=== PATIENT | male | born 1945 | race American Indian/Alaskan Native ===

== ENCOUNTER 2017-03-31 08:38 | Day surgery (SDC) | payer MEDICARE ==
[2017-03-31] MEDS ORDERED: Iohexol 240 (50 ml) ONE (10:25)
[2017-03-31] MEDS ORDERED: Midazolam 2 MG/2 ML VIAL ONE (10:45)
[2017-03-31] MEDS ORDERED: Propofol 10 mg/ml Inj (20 ML) ONE (10:45)
[2017-03-31] MEDS ORDERED: cefTRIAXone (Rocephin) 1 gm Inj ONE (10:52)
[2017-03-31] MEDS ORDERED: Sodium Chloride 0.9% 1,000 ML IV SCH (11:15)
[2017-03-31 12:19] VITALS: TEMP 97.6
[2017-03-31 12:32] VITALS: BMI 36.9
[2017-03-31 13:18] VITALS: BP 123/81; PULSE 76; RESP 20; O2SAT 96
--- NOTE | 2017-04-01 16:00 | RAD ---
PROCEDURE: Retrograde pyelogram HISTORY: CYSTOSCOPY COMPARISON: TECHNIQUE: Fluoroscopy was provided in the operating room. 58 seconds of fluoroscopy time were utilized. Six images were submitted FINDINGS: The study was performed by Dr. Arevalo. The renal collecting systems and both ureters are unremarkable. IMPRESSION: As above
== END 2017-03-31 13:45 | disposition home or self-care (01) ==
LOC: SDS 08:38
PROVIDERS: ATTEND Urology
DX: R31.9 Hematuria, unspecified (principal); I10 Essential (primary) hypertension
CPT/HCPCS: 52005; 74420; C1758; J0696; J1885 ×2; J2250; J2704; J3010; J7040; J7120; Q9966

== ENCOUNTER 2017-11-12 06:51 | Observation (INO) | payer MEDICARE, OTHER ==
[2017-11-12 06:56] VITALS: BMI 32.1
--- NOTE | 2017-11-12 07:27 | ED PDOC ---
Arrival/HPI - General Chief Complaint: Shortness Of Breath Time Seen by Provider: 11/12/17 07:15 Historian: Patient - History of Present Illness Narrative History of Present Illness (Text): 11/12/17 07:15 Oscar Mathew is a72 year old male, who presents to the emergency department complaining of shortness of breath since early this morning. Patient reports coughing and the symptoms began when he woke up. Patient denies chest pain, headache, fever, chills, back pain, nausea, vomiting, diarrhea, abdominal pain, lower extremity pain/swelling, recent travel, or other complaints. PMD: Dr. Duarte Time/Duration: Prior to Arrival Symptom Onset: Sudden Symptom Course: Unchanged Activities at Onset: Rest Context: Home Past Medical History - Provider Review Nursing Documentation Reviewed: Yes - Cardiac Hx Hypertension: Yes Hx Pacemaker: No - Pulmonary Hx Respiratory Disorders: No - Neurological Hx Paralysis: No - HEENT Hx HEENT Disorder: No - Renal Hx Renal Disorder: No - Endocrine/Metabolic Hx Endocrine Disorders: No - Hematological/Oncological Hx Blood Transfusions: No - Integumentary Hx Dermatological Disorder: No - Musculoskeletal/Rheumatological Hx Musculoskeletal Disorders: Yes - Gastrointestinal Hx Gastrointestinal Disorders: No - Genitourinary/Gynecological Hx Genitourinary Disorders: Yes (overactive bladder) - Psychiatric Hx Emotional Abuse: No Hx Physical Abuse: No Hx Substance Use: No - Surgical History Hx Orthopedic Surgery: Yes (left wrist sx 16 yrs old) - Anesthesia Hx Anesthesia Reactions: No Hx Malignant Hyperthermia: No - Suicidal Assessment Feels Threatened In Home Enviroment: No Family/Social History - Physician Review Nursing Documentation Reviewed: Yes Family/Social History: Unknown Family HX Smoking Status: Former Smoker Hx Alcohol Use: Yes (socially) Hx Substance Use: No Allergies/Home Meds Allergies/Adverse Reactions: Allergies No Known Allergies Allergy (Verified 11/12/17 06:56) Home Medications: Home Meds Medication Instructions Recorded Confirmed Atorvastatin [Lipitor] 80 mg PO DAILY 11/15/16 11/12/17 Benazepril HCl [Benazepril HCl] 40 mg PO DAILY 11/15/16 11/12/17 Mirabegron [Myrbetriq] 50 mg PO DAILY 11/15/16 11/12/17 amLODIPine [Norvasc] 10 mg PO DAILY 03/20/17 11/12/17 Pravastatin Sodium [Pravachol] 40 mg PO DAILY 11/12/17 11/12/17 Review of Systems - Physician Review All systems were reviewed & negative as marked: Yes - Review of Systems Constitutional: absent: Fevers Respiratory: SOB, Cough Cardiovascular: absent: Chest Pain Gastrointestinal: absent: Abdominal Pain Physical Exam Vital Signs Reviewed: Yes Vital Signs Temp Pulse Resp BP Pulse Ox 11/12/17 12:39 146/77 11/12/17 11:53 97.8 F 96 H 18 148/79 97 11/12/17 07:10 23 97 11/12/17 06:57 97.0 F L 108 H 22 154/83 H 97 Temperature: Hypothermic Blood Pressure: Hypertensive Pulse: Tachycardic Respiratory Rate: Normal Appearance: Positive for: Well-Appearing, Non-Toxic, Comfortable Pain Distress: None Mental Status: Positive for: Alert and Oriented X 3 - Systems Exam Head: Present: Atraumatic, Normocephalic Pupils: Present: PERRL Extroacular Muscles: Present: EOMI Conjunctiva: Present: Normal Mouth: Present: Moist Mucous Membranes Neck: Present: Normal Range of Motion Respiratory/Chest: Present: Decreased Breath Sounds (diminished sound at bases) . No: Clear to Auscultation, Good Air Exchange, Respiratory Distress, Accessory Muscle Use Cardiovascular: Present: Normal S1, S2, Tachycardic. No: Murmurs Abdomen: Present: Normal Bowel Sounds. No: Tenderness, Distention, Peritoneal Signs, Rebound, Guarding Lower Extremity: Present: Normal Inspection, NORMAL PULSES, Normal ROM, Neurovascularly Intact, Capillary Refill < 2 s. No: Edema, Cyanosis, Tenderness , Swelling, Erythema, Deformity Neurological: Present: GCS=15, CN II-XII Intact, Speech Normal Skin: Present: Warm, Dry, Normal Color. No: Rashes Psychiatric: Present: Alert, Oriented x 3, Normal Insight, Normal Concentration Medical Decision Making ED Course and Treatment: 11/12/17 Impression: 72 year old male with diminished sound at bases complaining of shortness of breath and cough since this morning. Plan: -- EKG -- Chest X-ray -- Labs -- Urinalysis -- Reassess and disposition Progress Notes: EKG: Ordered, reviewed, and independently interpreted the EKG. Rate : 107 BPM Rhythm : sinus tachycardia Interpretation : Non-specific ST-segment elevations or depressions, no T-wave inversions, normal intervals. 11/12/17 09:00 Chest X-ray: Creator : Jhonatan Rubio MD COMPARISON: 03/20/2027 FINDINGS: LUNGS: No active pulmonary disease. PLEURA: No significant pleural effusion identified, no pneumothorax apparent. CARDIOVASCULAR: Normal heart size. Congestive change. OSSEOUS STRUCTURES: No significant abnormalities. VISUALIZED UPPER ABDOMEN: Normal. OTHER FINDINGS: None. IMPRESSION: Congestive change. Possible congestive heart failure. No evidence of pulmonary edema. No additional abnormality. 11/12/17 13:43 dr cisneros requests hospitalist admission. accepted by dr bazan - Lab Interpretations Lab Results: 11/12/17 07:13 11/12/17 09:10 Lab Results 11/12/17 09:39: Urine Color Yellow, Urine Appearance Sl cloudy, Urine pH 6.0, Ur Specific [place] >= 1.030, Urine Protein >=300 H, Urine Glucose (UA) Negative , Urine Ketones Negative, Urine Blood Moderate H, Urine Nitrate Negative, Urine Bilirubin Negative, Urine Urobilinogen 0.2, Ur Leukocyte Esterase Negative, Urine RBC 10 - 15, Urine WBC 5 - 10, Ur Epithelial Cells 4 - 5, Urine Bacteria Mod 11/12/17 09:10: Sodium 142, Potassium 4.1, Chloride 107, Carbon Dioxide 24, Anion Gap 16, BUN 16, Creatinine 0.9, Est GFR ( Amer) > 60, Est GFR (Non- Af Amer) > 60, Random Glucose 163 H, Calcium 9.7, Magnesium 1.9, Total Bilirubin 0.6, AST 43, ALT 40, Alkaline Phosphatase 47, Lactate Dehydrogenase 656, Total Creatine Kinase 212, Troponin I 0.10 D, NT-Pro-B Natriuret Pep 472 H , Total Protein 7.6, Albumin 3.9, Globulin 3.7, Albumin/Globulin Ratio 1.1 11/12/17 07:13: Influenza Typ A,B (EIA) Negative for flu a/b 11/12/17 07:13: PT 12.6 H, INR 1.09 H, APTT 29.0, D-Dimer, Quantitative 290 H 11/12/17 07:13: WBC 10.3, RBC 4.65, Hgb 14.5, Hct 44.5, MCV 95.7, MCH 31.2, MCHC 32.6, RDW 13.5, Plt Count 238, MPV 11.8 H, Gran % 49.5 L, Lymph % (Auto) 39.5 H, [place] % (Auto) 4.7, Eos % (Auto) 5.7 H, Baso % (Auto) 0.6, Gran # 5.10, Lymph # (Auto) 4.1 H, [place] # (Auto) 0.5, Eos # (Auto) 0.6, Baso # (Auto) 0.06 I have reviewed the lab results: Yes - RAD Interpretation Radiology Orders: 11/12/17 07:19 CHEST PORTABLE [RAD] Stat 11/12/17 09:44 ANGIO CHEST PE PROTOCOL [CT] Stat Marketing Assistant: Radiologist - EKG Interpretation Interpreted by ED Physician: Yes Type: 12 lead EKG - Medication Orders Current Medication Orders: Amlodipine Besylate (Norvasc) 10 mg PO DAILY KYLE Atorvastatin Calcium (Lipitor) 80 mg PO DIN KYLE Atorvastatin Calcium (Lipitor) 10 mg PO DAILY KYLE Furosemide (Lasix) 40 mg IVP Q12 KYLE Heparin Sodium (Porcine) (Heparin) 5,000 units SC Q12 KYLE PRN Reason: Protocol Non-Formulary Medication (Benazepril Hcl [Benazepril Hcl]) 40 mg PO DAILY KYLE Non-Formulary Medication (Mirabegron [Myrbetriq]) 50 mg PO DAILY KYLE Pantoprazole Sodium (Protonix Inj) 40 mg IVP DAILY KYLE Discontinued Medications Furosemide (Lasix) 40 mg IVP STAT STA Stop: 11/12/17 12:14 Last Admin: 11/12/17 12:39 Dose: 40 mg MAR Blood Pressure Document 11/12/17 12:39 EQ (Rec: 11/12/17 12:39 EQ [id number]) Blood Pressure Blood Pressure (100/60-150/90) 146/77 IVP Administration Document 11/12/17 12:39 EQ (Rec: 11/12/17 12:39 EQ [id number]) Charges for Administration # of IVP Administrations 1 - Scribe Statement The provider has reviewed the documentation as recorded by the Sofy Li Provider Scribe Attestation: All medical record entries made by the Scribe were at my direction and personally dictated by me. I have reviewed the chart and agree that the record accurately reflects my personal performance of the history, physical exam, medical decision making, and the department course for this patient. I have also personally directed, reviewed, and agree with the discharge instructions and disposition. Disposition/Present on Arrival - Present on Arrival Any Indicators Present on Arrival: No History of DVT/PE: No History of Uncontrolled Diabetes: No Urinary Catheter: No History of Decub. Ulcer: No History Surgical Site Infection Following: None - Disposition Have Diagnosis and Disposition been Completed?: Yes Diagnosis: CHF (congestive heart failure) Disposition: HOSPITALIZED Disposition Time: 12:00 Condition: STABLE
[2017-11-12 08:06] LABS: BASO # 0.06 K/mm3 (0.0-2.0); BASO % 0.6 % (0.0-3.0); EOS # 0.6 (0.0-0.7); EOS % 5.7 % (1.5-5.0); GRAN # 5.1 (1.4-6.5); GRAN % 49.5 % (50.0-68.0); HEMOGLOBIN 14.5 g/dL (14.0-18.0); LYMPH # 4.1 (1.2-3.4); LYMPH % 39.5 % (22.0-35.0); MEAN CELL VOLUME 95.7 fl (80.0-105.0); MEAN CORPUSCULAR HEMOGLOBIN 31.2 pg (25.0-35.0); MEAN CORPUSCULAR HGB CONC 32.6 g/dl (31.0-37.0); MEAN PLATELET VOLUME 11.8 fl (7.0-11.0); MONO # 0.5 (0.1-0.6); MONO % 4.7 % (1.0-6.0); RBC 4.65 10^6/uL (3.5-6.1); RED CELL DISTRIBUTION WIDTH 13.5 % (11.5-14.5); WHITE BLOOD COUNT 10.3 10^3/ul (4.5-11.0)
[2017-11-12 08:22] LABS: INR 1.09 (0.93-1.08); PROTHROMBIN TIME 12.6 SECONDS (9.4-12.5)
--- NOTE | 2017-11-12 08:51 | RAD ---
HISTORY: sob COMPARISON: 03/20/2027 FINDINGS: LUNGS: No active pulmonary disease. PLEURA: No significant pleural effusion identified, no pneumothorax apparent. CARDIOVASCULAR: Normal heart size. Congestive change. OSSEOUS STRUCTURES: No significant abnormalities. VISUALIZED UPPER ABDOMEN: Normal. OTHER FINDINGS: None. IMPRESSION: Congestive change. Possible congestive heart failure. No evidence of pulmonary edema. No additional abnormality.
[2017-11-12 09:41] LABS: ALB/GLOB RATIO 1.1 (1.1-1.8); ALBUMIN 3.9 g/dL (3.0-4.8); ALT/SGPT 40 U/L (7-56); AST/SGOT 43 U/L (17-59); BLOOD UREA NITROGEN 16 mg/dL (7-21); CALCIUM 9.7 mg/dL (8.4-10.5); GFR AFRICAN-AMERICAN > 60; GFR NON-AFRICAN AMERICAN > 60; MAGNESIUM 1.9 mg/dL (1.7-2.2)
[2017-11-12 09:45] LABS: B-TYPE NATRIURETIC PEPTIDE 472 pg/mL (0-450)
[2017-11-12 10:05] LABS: URINE BILIRUBIN NEGATIVE (NEGATIVE); URINE BLOOD MODERATE (NEGATIVE); URINE GLUCOSE (UA) NEGATIVE (NEGATIVE); URINE LEUKOCYTE ESTERASE NEGATIVE Leu/uL (NEGATIVE); URINE NITRATE NEGATIVE (NEGATIVE); URINE PROTEIN >=300 mg/dL (<30 mg/dL); URINE UROBILINOGEN 0.2 E.U./dL (<1 E.U./dL)
[2017-11-12 10:06] LABS: URINE APPEARANCE SL CLOUDY (CLEAR); URINE COLOR YELLOW (YELLOW)
[2017-11-12] MEDS ORDERED: Iodixanol 320 MG/ML 100 ML BOTTLE IV ONE (10:17)
[2017-11-12 10:18] LABS: URINE BACTERIA MOD (NEG)
--- NOTE | 2017-11-12 11:50 | CT ---
PROCEDURE: CT Chest with contrast (Pulmonary Angiogram) HISTORY: sob elevated dimer COMPARISON: None available. TECHNIQUE: Axial computed tomography images were obtained of the chest in the pulmonary arterial phase of enhancement. Coronal and sagittal reformatted images were created and reviewed. This CT exam was performed using one or more of the following dose reduction techniques: Automated exposure control, adjustment of the mA and/or kV according to patient size, and/or use of iterative reconstruction technique. Intravenous contrast dose: 100 cc of Visipaque 320 Radiation dose: Total exam DLP = 542 mGy-cm. FINDINGS: PULMONARY ARTERIES: Unremarkable. No pulmonary embolism. AORTA: No acute findings. No thoracic aortic aneurysm. LUNGS: Minimal interstitial changes are seen. There is no focal consolidation PLEURAL SPACES: Unremarkable. No effusion or pneuomothorax. HEART: Unremarkable. No cardiomegaly. No significant pericardial effusion. LYMPH NODES: No lymphadenopathy. BONES, CHEST WALL: Unremarkable. No fracture or destructive lesion OTHER FINDINGS: Unremarkable. IMPRESSION: Unremarkable CT pulmonary angiogram. No pulmonary embolus.
--- NOTE | 2017-11-12 14:36 | CP.PCM.HP ---
<Olegario Upton - Last Filed: 11/12/17 15:12> History of Present Illness - History of Present Illness History of Present Illness: Dr. Becerra Service CC: Shortness of Breath x 1 day HPI: 72 M with a PMHx of HTN, HLD, and overactive bladder presents to the [facility] with complaints of Shortness of breath x1 day. Pt states that he started feeling symptoms of shortness of breath yesterday, however his symptoms progressively worsened this morning prompting him to seek medical attention. Pt was brought in by ambulance. Pt reported a mild intermittent productive cough with white sputum. Pt never felt these symptoms at rest. He states he is able to walk 1 block before reporting shortness of breath. he usually sleeps with 2 pillows at night. He denied fever, chills, lower extremity swelling, chest pains , abdominal pains, nausea, vomiting, diarrhea, constipation or urinary symptoms. PMHx: HTN, HLD, overactive bladder, previous Echo 40% PSHx: Left wrist SHx: Former smoker (1ppd) quit 5 years ago. Social ETOH, Denied illicit substances FamHx: HTN, DM2, CAD, throat Cancer Meds: Norvasc, myrbetriq, benzapril, lipitor Allergies: NKDA PMD: Dr. Duarte Present on Admission - Present on Admission Any Indicators Present on Admission: No Review of Systems - Review of Systems Review of Systems: As per HPI otherwise negative Past Patient History - Past Social History Smoking Status: Former Smoker - CARDIAC Hx Hypertension: Yes Hx Pacemaker: No - PULMONARY Hx Respiratory Disorders: No - NEUROLOGICAL Hx Paralysis: No - HEENT Hx HEENT Problems: No - RENAL Hx Chronic Kidney Disease: No - ENDOCRINE/METABOLIC Hx Endocrine Disorders: No - HEMATOLOGICAL/ONCOLOGICAL Hx Blood Transfusions: No - INTEGUMENTARY Hx Dermatological Problems: No - MUSCULOSKELETAL/RHEUMATOLOGICAL Hx Musculoskeletal Disorders: Yes - GASTROINTESTINAL Hx Gastrointestinal Disorders: No - GENITOURINARY/GYNECOLOGICAL Hx Genitourinary Disorders: Yes (overactive bladder) - PSYCHIATRIC Hx Emotional Abuse: No Hx Physical Abuse: No Hx Substance Use: No - SURGICAL HISTORY Hx Orthopedic Surgery: Yes (left wrist sx 16 yrs old) - ANESTHESIA Hx Anesthesia Reactions: No Hx Malignant Hyperthermia: No Meds Allergies/Adverse Reactions: Allergies Allergy/AdvReac Type Severity Reaction Status Date / Time No Known Allergies Allergy Verified 11/12/17 16:46 Physical Exam - Constitutional Appears: No Acute Distress - Head Exam Head Exam: ATRAUMATIC, NORMAL INSPECTION, NORMOCEPHALIC - Eye Exam Eye Exam: EOMI, Normal appearance, PERRL Pupil Exam: NORMAL ACCOMODATION, PERRL - ENT Exam ENT Exam: Mucous Membranes Moist, Normal Exam - Neck Exam Neck exam: Positive for: Normal Inspection - Respiratory Exam Respiratory Exam: Clear to Auscultation Bilateral, Rales (minimal), NORMAL BREATHING PATTERN - Cardiovascular Exam Cardiovascular Exam: REGULAR RHYTHM, +S1, +S2 - GI/Abdominal Exam GI & Abdominal Exam: Normal Bowel Sounds, Soft. absent: Tenderness - Extremities Exam Extremities exam: Positive for: normal inspection. Negative for: pedal edema - Back Exam Back exam: NORMAL INSPECTION - Neurological Exam Neurological exam: Alert, CN II-XII Intact, Normal Gait, Oriented x3, Reflexes Normal - Psychiatric Exam Psychiatric exam: Normal Affect, Normal Mood - Skin Skin Exam: Dry, Intact, Normal Color, Warm Results - Vital Signs Recent Vital Signs: Last Vital Signs Temp 97.8 F 11/12/17 11:53 Pulse 89 11/12/17 13:56 Resp 18 11/12/17 13:56 BP 146/77 11/12/17 13:56 Pulse Ox 98 11/12/17 13:56 - Labs Result Diagrams: 11/12/17 07:13 11/12/17 09:10 Assessment & Plan - Assessment and Plan (Free Text) Assessment: 72 M with a PMHx of HTN, HLD, and overactive bladder presents to the [facility] with complaints of Shortness of breath, admitted to observation for CHF exacerbation. CHF Exacerbation CXR demonstrated venous congestion BNP 429 trop 0.10, serial trops EKG: Sinus tachycardia fu EKG in AM, no chest pain 02 prn maintain sat >90% no lower extremity edema Last Echo EF 40% 11/2016 repeat echo repeat cxr Lasix 40mg IV q12 Cardiology consulted, Dr. Bueno PT eval HTN stable continue home meds, norvasc, benzapril continue to monitor HLD continue home meds lipitor Overactive bladder Continue myrbetriq GI ppx protonix DVT ppx heparin Seen reviewed and discussed with attending, Dr. Becerra <Ramu Becerra - Last Filed: 11/13/17 07:52> Results - Vital Signs Recent Vital Signs: Last Vital Signs Temp 98.5 F 11/13/17 05:57 Pulse 78 11/13/17 05:57 Resp 20 11/13/17 05:57 BP 136/87 11/13/17 05:57 Pulse Ox 98 11/13/17 05:57 - Labs Result Diagrams: 11/13/17 07:00 11/13/17 07:00 Labs: Laboratory Results - last 24 hr 11/12/17 11/12/17 11/12/17 13:44 16:33 16:33 WBC RBC Hgb Hct MCV MCH MCHC RDW Plt Count MPV Gran % Lymph % (Auto) [place] % (Auto) Eos % (Auto) Baso % (Auto) Gran # Lymph # (Auto) [place] # (Auto) Eos # (Auto) Baso # (Auto) Sodium Potassium Chloride Carbon Dioxide Anion Gap BUN Creatinine Est GFR ( Amer) Est GFR (Non-Af Amer) Random Glucose Hemoglobin A1c 5.9 Calcium Phosphorus Magnesium Total Bilirubin AST ALT Alkaline Phosphatase Troponin I 0.10 Total Protein Albumin Globulin Albumin/Globulin Ratio Triglycerides 192 H Cholesterol 235 H LDL Cholesterol Direct 181 H HDL Cholesterol 42 TSH 3rd Generation 1.20 11/12/17 11/13/17 11/13/17 22:45 07:00 07:00 WBC 8.8 RBC 4.65 Hgb 14.5 Hct 44.3 MCV 95.3 MCH 31.2 MCHC 32.7 RDW 13.7 Plt Count 239 MPV 11.5 H Gran % 54.1 Lymph % (Auto) 32.5 [place] % (Auto) 7.3 H Eos % (Auto) 5.5 H Baso % (Auto) 0.6 Gran # 4.74 Lymph # (Auto) 2.8 [place] # (Auto) 0.6 Eos # (Auto) 0.5 Baso # (Auto) 0.05 Sodium 142 Potassium 3.9 Chloride 100 Carbon Dioxide 28 Anion Gap 18 BUN 16 Creatinine 1.0 Est GFR ( Amer) > 60 Est GFR (Non-Af Amer) > 60 Random Glucose 138 H Hemoglobin A1c Calcium 10.0 Phosphorus 3.9 Magnesium 1.8 Total Bilirubin 1.3 AST 31 ALT 36 Alkaline Phosphatase 56 Troponin I 0.09 Total Protein 7.7 Albumin 4.0 Globulin 3.6 Albumin/Globulin Ratio 1.1 Triglycerides Cholesterol LDL Cholesterol Direct HDL Cholesterol TSH 3rd Generation Attending/Attestation - Attestation I have personally seen and examined this patient.: Yes I have fully participated in the care of the patient.: Yes I have reviewed all pertinent clinical information: Yes Notes (Text): 11/13/17 07:48 Attending note; Patient seen and examined with resident in ER. Patient is a 72-year-old male with a history of hypertension, hyperlipidemia, overactive bladder is admitted with shortness of breath on exertion. Chest x-ray showed vascular congestion. Possible diastolic heart failure. Admit to telemetry. Cardiac enzymes [address] chest is negative for pulmonary embolus. Cardiology evaluation with ordered. Hypercholesteremia; continue Lipitor. Upon discharge the patient will follow-up with PMD .
[2017-11-12 17:11] LABS: TROPONIN I 0.1 ng/mL
--- NOTE | 2017-11-12 18:10 | CARD ---
APPROVED REPORT EKG Measurement Heart [id number] <Conclusion> Sinus tachycardia Possible Left atrial enlargement Nonspecific ST abnormality Abnormal ECG
[2017-11-12] MEDS ORDERED: Pneumococcal 23-Valent Vaccine IM ONE (19:40)
[2017-11-12] MEDS ORDERED: Influenza Vaccine 60 mcg/0.5 mL SYR (4YR UP) IM ONE (19:40)
[2017-11-13 06:00] VITALS: RESP 20; O2SAT 98
[2017-11-13 07:28] LABS: BASO # 0.05 K/mm3 (0.0-2.0); BASO % 0.6 % (0.0-3.0); EOS # 0.5 (0.0-0.7); EOS % 5.5 % (1.5-5.0); GRAN # 4.74 (1.4-6.5); GRAN % 54.1 % (50.0-68.0); HEMOGLOBIN 14.5 g/dL (14.0-18.0); LYMPH # 2.8 (1.2-3.4); LYMPH % 32.5 % (22.0-35.0); MEAN CELL VOLUME 95.3 fl (80.0-105.0); MEAN CORPUSCULAR HEMOGLOBIN 31.2 pg (25.0-35.0); MEAN CORPUSCULAR HGB CONC 32.7 g/dl (31.0-37.0); MEAN PLATELET VOLUME 11.5 fl (7.0-11.0); MONO # 0.6 (0.1-0.6); MONO % 7.3 % (1.0-6.0); RBC 4.65 10^6/uL (3.5-6.1); RED CELL DISTRIBUTION WIDTH 13.7 % (11.5-14.5); WHITE BLOOD COUNT 8.8 10^3/ul (4.5-11.0)
[2017-11-13] MEDS ORDERED: Pantoprazole 40 mg EC Tab PO SCH (07:30)
[2017-11-13 07:45] LABS: ALB/GLOB RATIO 1.1 (1.1-1.8); ALT/SGPT 36 U/L (7-56); AST/SGOT 31 U/L (17-59); BLOOD UREA NITROGEN 16 mg/dL (7-21); GFR AFRICAN-AMERICAN > 60; GFR NON-AFRICAN AMERICAN > 60; MAGNESIUM 1.8 mg/dL (1.7-2.2)
--- NOTE | 2017-11-13 10:50 | CON ---
DATE: 11/13/2017 INDICATION: Shortness of breath. HISTORY OF PRESENT ILLNESS: This is a 72-year-old man with a history of hypertension, hyperlipidemia, former smoker, who developed shortness of breath, which worsened over a couple of days. Yesterday, it got worse and he became concerned. He had also had some cough with sputum production. He came to the emergency room, was evaluated and admitted to telemetry. He was given IV Lasix and during the night he diuresed. He feels better this morning. He is able to lie flat in bed and he does not have current symptoms. There was no chest pain, orthopnea, PND, syncope, presyncope, lightheadedness, dizziness, vertigo, palpitation, edema, claudication, fever, chills, rigors, sweats, hemoptysis, abdominal pain, nausea, vomiting, diarrhea, constipation or melena. PAST MEDICAL HISTORY: Notable for hypertension, hyperlipidemia and urinary incontinence. He was admitted in 11/2016 for shortness of breath. At that time, an echocardiogram demonstrated mild LV hypocontractility and mild MR. There was no history of rheumatic fever, myocardial infarction, congestive heart failure, arrhythmia, diabetes, stroke, TIA or gout. MEDICATIONS AT THE TIME OF ADMISSION: Include benazepril HCT, Lipitor, Myrbetriq, Norvasc, Pravachol. ALLERGIES: THERE ARE NO MEDICATION ALLERGIES REPORTED. FAMILY HISTORY: Notable for heart disease. SOCIAL HISTORY: He lives at home. He is ambulatory. He no longer smokes. He drinks alcohol on social occasions. REVIEW OF SYSTEMS: Ten-point review of systems otherwise unremarkable except as noted above. PHYSICAL EXAMINATION: GENERAL: He is a well-developed male, lying in bed, in no acute distress on telemetry. VITAL SIGNS: He is in sinus rhythm, 78 beats per minute. He is afebrile, blood pressure 136/87, respirations 18 to 20, O2 sat 96-99% on room air. HEENT: Reveals no neck vein distention, thyromegaly, carotid bruits. Mucous membranes moist. Conjunctivae pink. NECK: Supple. LUNGS: Lung sosa clear. HEART: Examination of the heart revealed normal first and second heart sounds. ABDOMEN: Soft. Bowel sounds are present. No mass, organomegaly, tenderness, rebound or guarding. No CVA tenderness. No palpable abdominal aortic aneurysm. EXTREMITIES: Revealed no cyanosis, clubbing or edema. NEUROLOGIC: Awake, alert and oriented. PSYCHIATRIC: Normal as to mood and affect. SKIN: Warm and dry. No rash or cellulitis. LABORATORY AND IMAGING: EKG demonstrates regular sinus rhythm with PVCs, poor R-wave progression, nonspecific ST-wave changes. A chest x-ray reveals possible congestive heart failure. A CT scan of the chest revealed no evidence of pulmonary embolus. CBC was unremarkable. PT/INR 12.6 and 1.9. PTT 29. D-dimer elevated at 290. Electrolytes: BUN, creatinine, blood sugar unremarkable. LFTs unremarkable. Three troponins are negative. CK 212, BNP 472, triglycerides 192, cholesterol 235, LDL 181, HDL 42, TSH is normal. Urinalysis is noted. Influenza is negative. IMPRESSION: Oscar Mathew is a 72-year-old man who presents with shortness of breath, worsening over the course of a couple of days with questionable mild congestive heart failure on chest x-ray and a history of mild left ventricular dysfunction on echocardiogram 1 year ago. His troponins are negative. His EKG does not show acute changes. PLAN: I agree with current plans. He is on telemetry. He is getting intravenous Lasix. He feels better this morning. He is getting aspirin, subcutaneous heparin, Lipitor, Myrbetriq, Norvasc, Protonix, lisinopril. I will get an echocardiogram. He can be out of bed. We will monitor inputs and outputs. We will plan for an outpatient nuclear stress test. I will follow along with you. I will make additional recommendations based on his clinical course. Fuentes Bueno MD [facility]
--- NOTE | 2017-11-13 12:36 | RAD ---
HISTORY: congestion COMPARISON: Portable chest 11/12/2017. FINDINGS: LUNGS: Silhouetting of the lateral left hemidiaphragm may indicate an element of atelectasis which is favored significantly over infiltrate. Clinically correlate nevertheless. Remaining lung sosa appear clear. PLEURA: Cardiomegaly appears stable. Pulmonary derangement appears diminished suggesting improvement in CHF. No definite pleural effusion at the right. Trace left pleural effusion is difficult to exclude. No pneumothorax bilaterally peer CARDIOVASCULAR: As above. OSSEOUS STRUCTURES: No significant abnormalities. VISUALIZED UPPER ABDOMEN: Normal. OTHER FINDINGS: None. IMPRESSION: Diminishing CHF pattern. Limited residual noted. Trace left pleural effusion not excluded. Trace lateral basilar atelectasis favored over infiltrate.
[2017-11-13 13:52] VITALS: BP 148/89; PULSE 80; TEMP 97.7
--- NOTE | 2017-11-13 16:59 | CARD ---
APPROVED REPORT EXAM: Two-dimensional and M-mode echocardiogram with Doppler and color Doppler. INDICATION Dyspnea 2D DIMENSIONS Left Atrium (2D)4.5 (1.6-4.0cm)IVSd1.3 (0.7-1.1cm) LVDd5.9 (3.9-5.9cm)PWd1.3 (0.7-1.1cm) LVDs5.0 (2.5-4.0cm)FS (%) 14.8 % LVEF (%)31.0 (>50%) M-Mode DIMENSIONS Aortic Root2.80 (2.2-3.7cm)Aortic Cusp Exc.1.90 (1.5-2.0cm) Aortic Valve AoV Peak Yslmqcey131.0cm/Sly Peak GR.5mmHg Mitral Valve MV E Fbuxgwec08.7cm/sMV A Ctubfdrr69.8cm/sE/A ratio1.1 TDI E/Lateral E'0.0E/Medial E'0.0 Tricuspid Valve TR Peak Eybqyvjm514bd/sRAP [id number] Peak Gr.34mmHg [id number] LEFT VENTRICLE The left ventricle is normal size. There is mild concentric left ventricular hypertrophy. The systolic function is moderately impaired. There is global hypokinesis of the left ventricle. RIGHT VENTRICLE The right ventricle is normal size. The right ventricular systolic function is normal. ATRIA The left atrium is mildly dilated. The right atrium is mildly dilated. The interatrial septum is intact with no evidence for an atrial septal defect. AORTIC VALVE The aortic valve is moderately sclerotic. There is no aortic valvular stenosis. MITRAL VALVE The mitral valve is moderately thickened. Mitral regurgitation is moderate. TRICUSPID VALVE The tricuspid valve is normal in structure. There is moderate tricuspid regurgitation. PULMONIC VALVE The pulmonary valve is normal in structure. GREAT VESSELS The aortic root is normal in size. The IVC is normal in size and collapses >50% with inspiration. PERICARDIAL EFFUSION There is no pleural effusion. There is no pericardial effusion. <Conclusion> Biatral enlargement. Normal LV size. Mild concentric LVH. Moderate global LV hypokinesis with overall EF of 35-40%. Moderate MR. Mild TR.
--- NOTE | 2017-11-13 18:40 | CP.PCM.DIS ---
<Kehinde Rock - Last Filed: 11/13/17 18:34> Provider - Provider Date of Admission: 11/12/17 12:52 Attending physician: Ramu Becerra MD Primary care physician: Wen Huerta MD Consults: Cardio: Ximena Time Spent in preparation of Discharge (in minutes): 35 Diagnosis - Discharge Diagnosis (1) CHF (congestive heart failure) Status: Acute Hospital Course - Lab Results Lab Results: Most Recent Lab Values WBC 8.8 10^3/ul (4.5-11.0) 11/13/17 07:00 RBC 4.65 10^6/uL (3.5-6.1) 11/13/17 07:00 Hgb 14.5 g/dL (14.0-18.0) 11/13/17 07:00 Hct 44.3 % (42.0-52.0) 11/13/17 07:00 MCV 95.3 fl (80.0-105.0) 11/13/17 07:00 MCH 31.2 pg (25.0-35.0) 11/13/17 07:00 MCHC 32.7 g/dl (31.0-37.0) 11/13/17 07:00 RDW 13.7 % (11.5-14.5) 11/13/17 07:00 Plt Count 239 10^3/uL (120.0-450.0) 11/13/17 07:00 MPV 11.5 fl (7.0-11.0) H 11/13/17 07:00 Gran % 54.1 % (50.0-68.0) 11/13/17 07:00 Lymph % (Auto) 32.5 % (22.0-35.0) 11/13/17 07:00 [place] % (Auto) 7.3 % (1.0-6.0) H 11/13/17 07:00 Eos % (Auto) 5.5 % (1.5-5.0) H 11/13/17 07:00 Baso % (Auto) 0.6 % (0.0-3.0) 11/13/17 07:00 Gran # 4.74 (1.4-6.5) 11/13/17 07:00 Lymph # (Auto) 2.8 (1.2-3.4) 11/13/17 07:00 [place] # (Auto) 0.6 (0.1-0.6) 11/13/17 07:00 Eos # (Auto) 0.5 (0.0-0.7) 11/13/17 07:00 Baso # (Auto) 0.05 K/mm3 (0.0-2.0) 11/13/17 07:00 PT 12.6 SECONDS (9.4-12.5) H 11/12/17 07:13 INR 1.09 (0.93-1.08) H 11/12/17 07:13 APTT 29.0 Seconds (25.1-36.5) 11/12/17 07:13 D-Dimer, Quantitative 290 ng/mL (0-243) H 11/12/17 07:13 Sodium 142 mmol/L (132-148) 11/13/17 07:00 Potassium 3.9 mmol/L (3.6-5.0) 11/13/17 07:00 Chloride 100 mmol/L (98-107) 11/13/17 07:00 Carbon Dioxide 28 mmol/L (21-33) 11/13/17 07:00 Anion Gap 18 (10-20) 11/13/17 07:00 BUN 16 mg/dL (7-21) 11/13/17 07:00 Creatinine 1.0 mg/dl (0.8-1.5) 11/13/17 07:00 Est GFR ( Amer) > 60 11/13/17 07:00 Est GFR (Non-Af Amer) > 60 11/13/17 07:00 Random Glucose 138 mg/dL (70-110) H 11/13/17 07:00 Hemoglobin A1c 5.9 % (4.2-6.5) 11/12/17 13:44 Calcium 10.0 mg/dL (8.4-10.5) 11/13/17 07:00 Phosphorus 3.9 mg/dL (2.5-4.5) 11/13/17 07:00 Magnesium 1.8 mg/dL (1.7-2.2) 11/13/17 07:00 Total Bilirubin 1.3 mg/dL (0.2-1.3) 11/13/17 07:00 AST 31 U/L (17-59) 11/13/17 07:00 ALT 36 U/L (7-56) 11/13/17 07:00 Alkaline Phosphatase 56 U/L (38-126) 11/13/17 07:00 Lactate Dehydrogenase 656 U/L (333-699) 11/12/17 09:10 Total Creatine Kinase 212 U/L (35-230) 11/12/17 09:10 Troponin I 0.09 ng/mL 11/12/17 22:45 NT-Pro-B Natriuret Pep 472 pg/mL (0-450) H 11/12/17 09:10 Total Protein 7.7 g/dL (5.8-8.3) 11/13/17 07:00 Albumin 4.0 g/dL (3.0-4.8) 11/13/17 07:00 Globulin 3.6 gm/dL 11/13/17 07:00 Albumin/Globulin Ratio 1.1 (1.1-1.8) 11/13/17 07:00 Triglycerides 192 mg/dL (35-160) H 11/12/17 16:33 Cholesterol 235 mg/dL (130-200) H 11/12/17 16:33 LDL Cholesterol Direct 181 mg/dL (0-129) H 11/12/17 16:33 HDL Cholesterol 42 mg/dL (29-60) 11/12/17 16:33 TSH 3rd Generation 1.20 mIU/mL (0.46-4.68) 11/12/17 16:33 Urine Color Yellow (YELLOW) 11/12/17 09:39 Urine Appearance Sl cloudy (CLEAR) 11/12/17 09:39 Urine pH 6.0 (4.7-8.0) 11/12/17 09:39 Ur Specific [place] >= 1.030 (1.005-1.035) 11/12/17 09:39 Urine Protein >=300 mg/dL (<30 mg/dL) H 11/12/17 09:39 Urine Glucose (UA) Negative mg/dL (NEGATIVE) 11/12/17 09:39 Urine Ketones Negative mg/dL (NEGATIVE) 11/12/17 09:39 Urine Blood Moderate (NEGATIVE) H 11/12/17 09:39 Urine Nitrate Negative (NEGATIVE) 11/12/17 09:39 Urine Bilirubin Negative (NEGATIVE) 11/12/17 09:39 Urine Urobilinogen 0.2 E.U./dL (<1 E.U./dL) 11/12/17 09:39 Ur Leukocyte Esterase Negative Fly/uL (NEGATIVE) 11/12/17 09:39 Urine RBC 10 - 15 /hpf (0-2) 11/12/17 09:39 Urine WBC 5 - 10 /hpf (0-6) 11/12/17 09:39 Ur Epithelial Cells 4 - 5 /hpf (0-5) 11/12/17 09:39 Urine Bacteria Mod (NEG) 11/12/17 09:39 Influenza Typ A,B (EIA) Negative for flu a/b (NEGATIVE) 11/12/17 07:13 - Hospital Course Hospital Course: 72 M with a PMHx of HTN, HLD, and overactive bladder who originally presented with complaints of shortness of breath. Clinically, patient appeared to be in acute CHF exacerbation. Serial troponins and EKG were unremarkable. Echo was done which showed no significant change from prior echocardiogram. Patient was treated with IV Lasix with good diuresis and marked improvement in his dyspnea. He was also started on PO lasix and aspirin. Today, he denies any chest pain, and shortness of breath is markedly improved. Patient was given new prescriptions for PO lasix and aspirin. He was also given instructions for follow up. All questions were answered to his satisfaction, and he was discharged to home. Discharge Exam - Head Exam Head Exam: ATRAUMATIC, NORMAL INSPECTION, NORMOCEPHALIC - Eye Exam Eye Exam: EOMI, Normal appearance, PERRL - ENT Exam ENT Exam: Mucous Membranes Moist - Neck Exam Neck exam: Normal Inspection - Respiratory Exam Respiratory Exam: Clear to PA & Lateral, NORMAL BREATHING PATTERN. absent: Rales, Rhonchi, Wheezes - Cardiovascular Exam Cardiovascular Exam: REGULAR RHYTHM, +S1, +S2 - GI/Abdominal Exam GI & Abdominal Exam: Normal Bowel Sounds, Soft. absent: Tenderness - Extremities Exam Extremities exam: normal inspection - Neurological Exam Neurological exam: Alert, CN II-XII Intact, Oriented x3 - Psychiatric Exam Psychiatric exam: Normal Affect, Normal Mood - Skin Skin Exam: Dry, Intact, Normal Color Discharge Plan - Discharge Medications Prescriptions: Aspirin [Adult Low Dose Aspirin EC] 81 mg PO DAILY #30 tablet. Furosemide [Lasix] 40 mg PO DAILY #30 tab - Follow Up Plan Condition: STABLE Disposition: HOME/ ROUTINE Instructions: Heart Failure (ED), Heart Healthy Diet (DC) Additional Instructions: 1. Pt is to fu with PMD within 3-5 days 2. 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 Bueno within 3-5 days for outpatient stress test 3. Pt is to follow a heart healthy diet 4. Pt is to note addition of aspirin to medical regimine 5. Continue home meds as directed 6. Pt welcomed to return to [facility] ED if symptoms change or worsen Referrals: Fuentes Bueno MD [Staff Provider] - Wen Prince MD [Primary Care Provider] - <Ramu Becerra - Last Filed: 11/14/17 13:23> Provider - Provider Date of Admission: 11/12/17 12:52 Attending physician: Ramu Becerra MD Primary care physician: Wen Huerta MD Hospital Course - Lab Results Lab Results: Most Recent Lab Values WBC 8.8 10^3/ul (4.5-11.0) 11/13/17 07:00 RBC 4.65 10^6/uL (3.5-6.1) 11/13/17 07:00 Hgb 14.5 g/dL (14.0-18.0) 11/13/17 07:00 Hct 44.3 % (42.0-52.0) 11/13/17 07:00 MCV 95.3 fl (80.0-105.0) 11/13/17 07:00 MCH 31.2 pg (25.0-35.0) 11/13/17 07:00 MCHC 32.7 g/dl (31.0-37.0) 11/13/17 07:00 RDW 13.7 % (11.5-14.5) 11/13/17 07:00 Plt Count 239 10^3/uL (120.0-450.0) 11/13/17 07:00 MPV 11.5 fl (7.0-11.0) H 11/13/17 07:00 Gran % 54.1 % (50.0-68.0) 11/13/17 07:00 Lymph % (Auto) 32.5 % (22.0-35.0) 11/13/17 07:00 [place] % (Auto) 7.3 % (1.0-6.0) H 11/13/17 07:00 Eos % (Auto) 5.5 % (1.5-5.0) H 11/13/17 07:00 Baso % (Auto) 0.6 % (0.0-3.0) 11/13/17 07:00 Gran # 4.74 (1.4-6.5) 11/13/17 07:00 Lymph # (Auto) 2.8 (1.2-3.4) 11/13/17 07:00 [place] # (Auto) 0.6 (0.1-0.6) 11/13/17 07:00 Eos # (Auto) 0.5 (0.0-0.7) 11/13/17 07:00 Baso # (Auto) 0.05 K/mm3 (0.0-2.0) 11/13/17 07:00 PT 12.6 SECONDS (9.4-12.5) H 11/12/17 07:13 INR 1.09 (0.93-1.08) H 11/12/17 07:13 APTT 29.0 Seconds (25.1-36.5) 11/12/17 07:13 D-Dimer, Quantitative 290 ng/mL (0-243) H 11/12/17 07:13 Sodium 142 mmol/L (132-148) 11/13/17 07:00 Potassium 3.9 mmol/L (3.6-5.0) 11/13/17 07:00 Chloride 100 mmol/L (98-107) 11/13/17 07:00 Carbon Dioxide 28 mmol/L (21-33) 11/13/17 07:00 Anion Gap 18 (10-20) 11/13/17 07:00 BUN 16 mg/dL (7-21) 11/13/17 07:00 Creatinine 1.0 mg/dl (0.8-1.5) 11/13/17 07:00 Est GFR ( Amer) > 60 11/13/17 07:00 Est GFR (Non-Af Amer) > 60 11/13/17 07:00 Random Glucose 138 mg/dL (70-110) H 11/13/17 07:00 Hemoglobin A1c 5.9 % (4.2-6.5) 11/12/17 13:44 Calcium 10.0 mg/dL (8.4-10.5) 11/13/17 07:00 Phosphorus 3.9 mg/dL (2.5-4.5) 11/13/17 07:00 Magnesium 1.8 mg/dL (1.7-2.2) 11/13/17 07:00 Total Bilirubin 1.3 mg/dL (0.2-1.3) 11/13/17 07:00 AST 31 U/L (17-59) 11/13/17 07:00 ALT 36 U/L (7-56) 11/13/17 07:00 Alkaline Phosphatase 56 U/L (38-126) 11/13/17 07:00 Lactate Dehydrogenase 656 U/L (333-699) 11/12/17 09:10 Total Creatine Kinase 212 U/L (35-230) 11/12/17 09:10 Troponin I 0.09 ng/mL 11/12/17 22:45 NT-Pro-B Natriuret Pep 472 pg/mL (0-450) H 11/12/17 09:10 Total Protein 7.7 g/dL (5.8-8.3) 11/13/17 07:00 Albumin 4.0 g/dL (3.0-4.8) 11/13/17 07:00 Globulin 3.6 gm/dL 11/13/17 07:00 Albumin/Globulin Ratio 1.1 (1.1-1.8) 11/13/17 07:00 Triglycerides 192 mg/dL (35-160) H 11/12/17 16:33 Cholesterol 235 mg/dL (130-200) H 11/12/17 16:33 LDL Cholesterol Direct 181 mg/dL (0-129) H 11/12/17 16:33 HDL Cholesterol 42 mg/dL (29-60) 11/12/17 16:33 TSH 3rd Generation 1.20 mIU/mL (0.46-4.68) 11/12/17 16:33 Urine Color Yellow (YELLOW) 11/12/17 09:39 Urine Appearance Sl cloudy (CLEAR) 11/12/17 09:39 Urine pH 6.0 (4.7-8.0) 11/12/17 09:39 Ur Specific [place] >= 1.030 (1.005-1.035) 11/12/17 09:39 Urine Protein >=300 mg/dL (<30 mg/dL) H 11/12/17 09:39 Urine Glucose (UA) Negative mg/dL (NEGATIVE) 11/12/17 09:39 Urine Ketones Negative mg/dL (NEGATIVE) 11/12/17 09:39 Urine Blood Moderate (NEGATIVE) H 11/12/17 09:39 Urine Nitrate Negative (NEGATIVE) 11/12/17 09:39 Urine Bilirubin Negative (NEGATIVE) 11/12/17 09:39 Urine Urobilinogen 0.2 E.U./dL (<1 E.U./dL) 11/12/17 09:39 Ur Leukocyte Esterase Negative Fly/uL (NEGATIVE) 11/12/17 09:39 Urine RBC 10 - 15 /hpf (0-2) 11/12/17 09:39 Urine WBC 5 - 10 /hpf (0-6) 11/12/17 09:39 Ur Epithelial Cells 4 - 5 /hpf (0-5) 11/12/17 09:39 Urine Bacteria Mod (NEG) 11/12/17 09:39 Influenza Typ A,B (EIA) Negative for flu a/b (NEGATIVE) 11/12/17 07:13 Attending/Attestation - Attestation I have personally seen and examined this patient.: Yes I have fully participated in the care of the patient.: Yes I have reviewed all pertinent clinical information, including history, physical exam and plan: Yes Notes (Text): 11/14/17 13:21 Attending note; Patient seen and examined with resident. Patient is a 72-year-old male with a history of hypertension, hyperlipidemia, overactive bladder is admitted with shortness of breath on exertion. Chest x-ray showed vascular congestion. admitted to telemetry and monitored. Cardiac enzymes 3 negative. Echocardiogram preliminary showed ejection fraction of 35-40%. Started on lasix. CT chest is negative for pulmonary embolus. Cardiology evaluation with appreciated. 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 Hypercholesteremia; continue Lipitor. patient is ambulating fine. No shortness of breath. no hypoxemia. No leg swelling. Tolerating diet well. Upon discharge the patient will follow-up with PMD . diagnosis; Acute systolic heart failure Hypertension Hyperlipidemia Overactive bladder
--- NOTE | 2017-11-13 23:37 | CARD ---
APPROVED REPORT EKG Measurement Heart [id number] <Conclusion> Sinus rhythm with sinus arrhythmia with occasional premature ventricular complexes Possible Left atrial enlargement Nonspecific T wave abnormality Prolonged QT Abnormal ECG
== END 2017-11-13 18:45 | disposition home or self-care (01) ==
LOC: ED 06:51 → ERH 12:52 → INTOOBSV 12:52 → ERH 17:03 → 3RSO 18:12
PROVIDERS: ADMIT Internal Medicine; ATTEND Internal Medicine
DX: I11.0 Hypertensive heart disease with heart failure (principal); I50.21 Acute systolic (congestive) heart failure; N32.81 Overactive bladder; E78.00 Pure hypercholesterolemia, unspecified; Z87.891 Personal history of nicotine dependence
CPT/HCPCS: 36415; 71045; 71275; 80053; 80061; 81001; 82550; 83036; 83615; 83735; 83880; 84100; 84443; 84484; 85025; 85378; 85610; 85730; 87086; 87804; 93005; 93306; 96372; 96374; 96375; 96376; 97116; 97161; 99285; C9113; G0378; G8978; G8979; G8980; J1644; J1940; Q9967

== ENCOUNTER 2019-02-08 01:49 | Inpatient (IN) | payer MEDICARE, OTHER ==
[2019-02-08 01:49] VITALS: BMI 32.1
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
[2019-02-08 02:53] LABS: HEMOGLOBIN 14.4 g/dL (14.0-18.0); MEAN CELL VOLUME 94.5 fl (80.0-105.0); MEAN CORPUSCULAR HEMOGLOBIN 31.4 pg (25.0-35.0); MEAN CORPUSCULAR HGB CONC 33.3 g/dl (31.0-37.0); MEAN PLATELET VOLUME 11.2 fl (7.0-11.0); RBC 4.58 10^6/uL (3.5-6.1); RED CELL DISTRIBUTION WIDTH 13.7 % (11.5-14.5); WHITE BLOOD COUNT 9.4 10^3/uL (4.5-11.0)
[2019-02-08 02:56] LABS: ALB/GLOB RATIO 1.1 (1.1-1.8); ALBUMIN 4.2 g/dL (3.0-4.8); ALT/SGPT 26 U/L (7-56); AST/SGOT 29 U/L (17-59); BLOOD UREA NITROGEN 17 mg/dL (7-21); CALCIUM 9.1 mg/dL (8.4-10.5); GFR NON-AFRICAN AMERICAN > 60; INR 1.21; PROTHROMBIN TIME 13.4 SECONDS (9.4-12.5)
[2019-02-08 03:07] LABS: B-TYPE NATRIURETIC PEPTIDE 429 pg/mL (0-450); TROPONIN I 0.07 ng/mL
[2019-02-08] MEDS ORDERED: Iohexol 350 MG/100 ML VIAL ONE (04:05)
--- NOTE | 2019-02-08 04:53 | CP.PCM.HP ---
<Darron Man - Last Filed: 02/08/19 07:19> History of Present Illness - History of Present Illness History of Present Illness: HISTORY & PHYSICAL NOTE FOR HOSPITALIST SERVICE Darron Man PGY1 73 y/o M with PMH HFrEF, HTN, HLD presents to ED with complaints of SOB, dyspnea thats occured since yesterday. Pt reports he had a meal consisting of fried chicken when he started noticing dyspnea. Pt reports he can normally walks a few blocks without difficulty and sleeps with 1 pillow without orthopnea. He reports he has been compliant with his medications. He denies any swelling of his feet. He also reports cough, congestion that hes had for several day. He denies fevers, chills, headache, dizziness, chest pain, palpitations, nausea, vomiting, constipation, diarrhea, dysuria. PMHx: HFrEF, HTN, HLD, overactive bladder, PSHx: Left wrist SHx: Former smoker (1ppd) quit 5 years ago. Social ETOH, Denied illicit substances FamHx: HTN, DM2, CAD, throat Cancer Meds: Norvasc, benzapril, lipitor Allergies: NKDA PMD: Dr. Duarte Pharm: Macario loza & cindi ADDISON Present on Admission - Present on Admission Any Indicators Present on Admission: No Review of Systems - Review of Systems Review of Systems: per HPI Past Patient History - Infectious Disease Hx of Infectious Diseases: None - Past Social History Smoking Status: Former Smoker - CARDIAC Hx Cardiac Disorders: Yes (CAD) Hx Congestive Heart Failure: Yes Hx Hypertension: Yes Hx Pacemaker: No - PULMONARY Hx Respiratory Disorders: Yes (SMOKED CIGARETTES.QUIT) Hx Pneumonia: Yes - NEUROLOGICAL Hx Neurological Disorder: No - HEENT Hx HEENT Problems: No - RENAL Hx Chronic Kidney Disease: No - ENDOCRINE/METABOLIC Hx Endocrine Disorders: No - HEMATOLOGICAL/ONCOLOGICAL Hx Blood Disorders: No - INTEGUMENTARY Hx Dermatological Problems: Yes Other/Comment: BILATERAL WRIST SCARRING.SURGERY A CHILD. LEFT AGEE SCARRING ,BANGED IT ON THE STEP. - MUSCULOSKELETAL/RHEUMATOLOGICAL Hx Musculoskeletal Disorders: Yes Hx Falls: No - GASTROINTESTINAL Hx Gastrointestinal Disorders: Yes Hx Gastroesophageal Reflux: Yes - GENITOURINARY/GYNECOLOGICAL Hx Genitourinary Disorders: Yes (overactive bladder) - PSYCHIATRIC Hx Emotional Abuse: No Hx Physical Abuse: No Hx Substance Use: No - SURGICAL HISTORY Hx Orthopedic Surgery: Yes (BILATERAL wrist sx 16 yrs old) - ANESTHESIA Hx Anesthesia Reactions: No Hx Malignant Hyperthermia: No Meds Allergies/Adverse Reactions: Allergies Allergy/AdvReac Type Severity Reaction Status Date / Time No Known Allergies Allergy Verified 11/12/17 16:46 Physical Exam - Constitutional Appears: Well, Non-toxic, No Acute Distress - Head Exam Head Exam: NORMAL INSPECTION, NORMOCEPHALIC - Eye Exam Eye Exam: EOMI, Normal appearance - ENT Exam ENT Exam: Mucous Membranes Moist, Normal Exam - Neck Exam Neck exam: Positive for: Normal Inspection - Respiratory Exam Respiratory Exam: Rales - Cardiovascular Exam Cardiovascular Exam: REGULAR RHYTHM, +S1, +S2 - GI/Abdominal Exam GI & Abdominal Exam: Soft. absent: Tenderness - Extremities Exam Extremities exam: Positive for: normal inspection. Negative for: calf tenderness - Back Exam Back exam: NORMAL INSPECTION - Neurological Exam Neurological exam: Alert, Oriented x3 - Psychiatric Exam Psychiatric exam: Normal Affect, Normal Mood - Skin Skin Exam: Dry, Intact, Warm Results - Vital Signs Recent Vital Signs: Last Vital Signs Temp 98.7 F 02/08/19 01:57 Pulse 110 H 02/08/19 01:57 Resp 20 02/08/19 01:57 BP 143/77 02/08/19 01:57 Pulse Ox 94 L 02/08/19 01:57 - Labs Result Diagrams: 02/08/19 02:32 02/08/19 02:32 Labs: Laboratory Results - last 24 hr 02/08/19 02/08/19 02/08/19 02:32 02:32 02:32 WBC 9.4 RBC 4.58 Hgb 14.4 Hct 43.3 MCV 94.5 MCH 31.4 MCHC 33.3 RDW 13.7 Plt Count 224 MPV 11.2 H PT 13.4 H INR 1.21 APTT 33.0 D-Dimer, Quantitative 462 H Sodium 141 Potassium 3.8 Chloride 104 Carbon Dioxide 26 Anion Gap 15 BUN 17 Creatinine 0.9 Est GFR ( Amer) > 60 Est GFR (Non-Af Amer) > 60 Random Glucose 140 H Calcium 9.1 Total Bilirubin 1.0 AST 29 ALT 26 Alkaline Phosphatase 63 Lactate Dehydrogenase 578 Total Creatine Kinase 339 H CK-MB (CK-2) 2.0 CK-MB (CK-2) % Cancelled Troponin I 0.07 D NT-Pro-B Natriuret Pep 429 Total Protein 7.9 Albumin 4.2 Globulin 3.7 Albumin/Globulin Ratio 1.1 Assessment & Plan - Assessment and Plan (Free Text) Assessment: 73 y/o M with PMH HFrEF, HTN, HLD presents to ED with complaints of SOB, dyspnea likely 2/2 CHF exacerbation Plan: Acute on Chronic CHF exacerbation Last echo 11/2017, EF 35-40%. CXR reveals vascular congestion. CTA: no PE, di ssection start lasix 40mg IVP q12 Strict I/O daily weights cardiology consult: Dr. Bueno. Seen in the past HTN continue amlodipine continue benazepril Overactive bladder continue Mirabegron GI/DVT PPx: SCD/pepcid Case reviewed with attending physician, Dr. Héctor Man PGY1 <Mason Anaya - Last Filed: 02/08/19 08:44> Results - Vital Signs Recent Vital Signs: Last Vital Signs Temp 98.7 F 02/08/19 01:57 Pulse 106 H 02/08/19 07:09 Resp 20 02/08/19 07:09 BP 134/58 L 02/08/19 07:02 Pulse Ox 96 02/08/19 05:23 - Labs Result Diagrams: 02/08/19 02:32 02/08/19 02:32 Labs: Laboratory Results - last 24 hr 02/08/19 02/08/19 02/08/19 02:32 02:32 02:32 WBC 9.4 RBC 4.58 Hgb 14.4 Hct 43.3 MCV 94.5 MCH 31.4 MCHC 33.3 RDW 13.7 Plt Count 224 MPV 11.2 H PT 13.4 H INR 1.21 APTT 33.0 D-Dimer, Quantitative 462 H Sodium 141 Potassium 3.8 Chloride 104 Carbon Dioxide 26 Anion Gap 15 BUN 17 Creatinine 0.9 Est GFR ( Amer) > 60 Est GFR (Non-Af Amer) > 60 Random Glucose 140 H Calcium 9.1 Total Bilirubin 1.0 AST 29 ALT 26 Alkaline Phosphatase 63 Lactate Dehydrogenase 578 Total Creatine Kinase 339 H CK-MB (CK-2) 2.0 CK-MB (CK-2) % Cancelled Troponin I 0.07 D NT-Pro-B Natriuret Pep 429 Total Protein 7.9 Albumin 4.2 Globulin 3.7 Albumin/Globulin Ratio 1.1 Attending/Attestation - Attestation I have personally seen and examined this patient.: Yes I have fully participated in the care of the patient.: Yes I have reviewed all pertinent clinical information: Yes
--- NOTE | 2019-02-08 08:34 | CT ---
Date of service: 02/08/2019 PROCEDURE: CT Chest with contrast (Pulmonary Angiogram) HISTORY: Shortness of breath. COMPARISON: 12/02/2017 CT pulmonary angiogram. February 08, 2019. Single-view chest TECHNIQUE: Axial computed tomography images were obtained of the chest in the pulmonary arterial phase of enhancement. Coronal and sagittal reformatted images were created and reviewed. Intravenous contrast dose: 100 cc Omnipaque 350. Mean Hounsfield value in the main pulmonary artery: 334.08 Radiation dose: Total exam DLP = 595.31 mGy-cm. This CT exam was performed using one or more of the following dose reduction techniques: Automated exposure control, adjustment of the mA and/or kV according to patient size, and/or use of iterative reconstruction technique. FINDINGS: PULMONARY ARTERIES: Unremarkable. No pulmonary embolism. AORTA: No acute findings. No thoracic aortic aneurysm. No atherosclerotic calcification or mural plaque present. LUNGS: Haziness to pulmonary parenchyma and thickening of interlobular septa consistent with a component of pulmonary vascular congestion. PLEURAL SPACES: Unremarkable. No effusion or pneumothorax. HEART: Cardiomegaly. No visible pericardial effusion. Pericardial effusion. LYMPH NODES: No lymphadenopathy. BONES, CHEST WALL: Unremarkable. No fracture or destructive lesion OTHER FINDINGS: Redemonstration of hepatic cysts and bilateral renal cysts. IMPRESSION: Unremarkable CT pulmonary angiogram. No pulmonary embolus. Cardiomegaly, pulmonary vascular congestion. Concordant results (preliminary interpretation) provided by [employer]. Procedure Completed: 04:09. Preliminary Report: Interpreted and electronically signed: 05:47. Final Interpretation: 08:30. February 08, 2019.
--- NOTE | 2019-02-08 08:54 | CARD ---
APPROVED REPORT Date of service: 02/08/2019 EKG Measurement Heart [id number] <Conclusion> Sinus tachycardia Possible Left atrial enlargement Nonspecific ST and T wave abnormality Abnormal ECG
--- NOTE | 2019-02-08 09:04 | RAD ---
Date of service: 02/08/2019 HISTORY: Shortness of breath. COMPARISON: 11/13/2017. FINDINGS: LUNGS: No active pulmonary disease. PLEURA: No significant pleural effusion identified, no pneumothorax apparent. CARDIOVASCULAR: No atherosclerotic calcification present No radiographic findings to suggest acute or significant cardiovascular disease. OSSEOUS STRUCTURES: No significant abnormalities. VISUALIZED UPPER ABDOMEN: Normal. OTHER FINDINGS: None. IMPRESSION: No active disease. No significant interval change compared to the prior examination(s).
--- NOTE | 2019-02-08 14:00 | CARD ---
APPROVED REPORT Date of service: 02/08/2019 EXAM: Two-dimensional and M-mode echocardiogram with Doppler and color Doppler. INDICATION Congestive Heart Failure 2D DIMENSIONS Left Atrium (2D)4.0 (1.6-4.0cm)IVSd1.3 (0.7-1.1cm) LVDd6.0 (3.9-5.9cm)PWd1.2 (0.7-1.1cm) LVDs5.1 (2.5-4.0cm)LVEF (%)32.0 (>50%) M-Mode DIMENSIONS Aortic Root3.20 (2.2-3.7cm)Aortic Cusp Exc.1.80 (1.5-2.0cm) Aortic Valve AoV Peak Sivygxfz129.0cm/Sly Peak GR.6mmHg Mitral Valve E/A ratio0.0 TDI E/Lateral E'0.0E/Medial E'0.0 Tricuspid Valve TR Peak [id number] [id number] Peak Gr.8mmHg [id number] LEFT VENTRICLE The Left Ventricle is mildly dilated. There is mild concentric left ventricular hypertrophy. The systolic function is moderately impaired. There is global hypokinesis of the left ventricle. RIGHT VENTRICLE The right ventricle is normal size. ATRIA The left atrium is borderline dilated. The right atrium is borderline dilated. The interatrial septum is intact with no evidence for an atrial septal defect. AORTIC VALVE The aortic valve is mildly sclerotic. No aortic regurgitation is present. There is no aortic valvular stenosis. MITRAL VALVE The mitral valve is mildly thickened. Mitral regurgitation is moderate. TRICUSPID VALVE The tricuspid valve is normal in structure. There is mild tricuspid regurgitation. GREAT VESSELS The aortic root is normal in size. The IVC is normal in size and collapses >50% with inspiration. PERICARDIAL EFFUSION There is no pleural effusion. There is no pericardial effusion. <Conclusion> Borderline biatrial enlargement. Mildly dilated LV. Moderate global LV hypokinesis. Moderate mitral regurgitation. Mild tricuspid regurgitation.
--- NOTE | 2019-02-08 15:43 | CON ---
DATE OF CONSULTATION: 02/08/2019 REQUESTING PHYSICIAN: Dr. Mendenhall. REASON FOR CONSULTATION: Dyspnea. HISTORY: This is a 73-year-old man known to us from prior admissions with a history of congestive cardiomyopathy, who presents to the emergency room with complaints of worsening exertional dyspnea over the past several days. He denies any associated chest pain. He claims compliance with his medications. He had claimed compliance with sodium restriction as an outpatient. He was last admitted in 11/2017, at which time he was found to have moderate LV dysfunction and with moderate mitral regurgitation. An outpatient stress test was performed, and the results are unavailable at the present time. PAST MEDICAL HISTORY: His past history is notable for the problems mentioned above. He does have a history of hypertension, hyperlipidemia, and overactive bladder. He has suffered a left wrist fracture in the past. MEDICATIONS: His medications at home included Norvasc, Benazepril, and Lipitor. ALLERGIES: NONE. SOCIAL HISTORY: He is a former smoker of a pack per day for many years. He quit 5 years ago. He drinks alcohol occasionally. FAMILY HISTORY: Both parents are from complications of diabetes and heart disease. REVIEW OF SYSTEMS: A 12-point review of systems is notable mainly for the problems mentioned above. He does have some exertional dyspnea at times. He denies any PND or orthopnea recently. PHYSICAL EXAMINATION: GENERAL: He is an overweight, middle-aged man. VITAL SIGNS: His blood pressure is 136/60 with a pulse of 100, respirations are 16. He is afebrile. HEENT: Normocephalic, atraumatic. NECK: Supple. No JVD noted. CHEST: Bibasilar rales heard. HEART: PMI displaced laterally with soft tones noted and a systolic murmur present at the apex. ABDOMEN: Soft, obese, nontender with normoactive bowel sounds. EXTREMITIES: No clubbing, cyanosis, or edema. Mild chronic cellulitic changes noted in both lower extremities. SKIN: Warm and dry. PSYCHIATRIC: Normal mood and affect. NEUROLOGIC: Alert and oriented x3. No gross motor or sensory deficits notable. DIAGNOSTIC DATA: White count is 9.4, hemoglobin and hematocrit are 14.4 and 43.3 with a platelet count of 224,000. PT/PTT of 13.4 and 33 with a potassium of 3.8, BUN and creatinine of 17 and 0.9. CK is 339 with troponin 0.07. Repeat is 0.09. BNP is 429. Chest x-ray reveals normal cardiac silhouette with mildly increased vascular markings. Electrocardiogram reveals sinus tachycardia, left atrial abnormality, nonspecific ST-T abnormalities. CT angiogram was unremarkable for pulmonary emboli. IMPRESSION: 1. Dyspnea with evidence of symptomatic congestive heart failure. Chest x-ray and physical findings not overly impressive for severe decompensation. 2. History of hypertension. 3. Heart failure with a reduced ejection fraction. 4. Moderate mitral regurgitation. 5. Rest of problems as noted. RECOMMENDATIONS: Amlodipine to be discontinued and metoprolol given in its place given his LV dysfunction, IV Lasix will continue for now. Spirolactone will be added to his regimen as well. His old records will be reviewed. Repeat echocardiogram will be planned. Further recommendations will be made based upon his clinical course. Thank you for this consultation. Leo Martin MD
[2019-02-09 07:25] LABS: ALB/GLOB RATIO 1.1 (1.1-1.8); ALBUMIN 4.3 g/dL (3.0-4.8)
[2019-02-09 07:26] LABS: BASO # 0.04 K/mm3 (0.0-2.0); BASO % 0.3 % (0.0-3.0); EOS # 0.5 (0.0-0.7); EOS % 3.6 % (1.5-5.0); HEMOGLOBIN 14.5 g/dL (14.0-18.0); LYMPH # 2.2 (1.2-3.4); MEAN CORPUSCULAR HEMOGLOBIN 30.9 pg (25.0-35.0); MEAN CORPUSCULAR HGB CONC 32.2 g/dl (31.0-37.0); MEAN PLATELET VOLUME 10.6 fl (7.0-11.0); MONO % 7.8 % (1.0-6.0); RBC 4.7 10^6/uL (3.5-6.1); RED CELL DISTRIBUTION WIDTH 13.7 % (11.5-14.5); WHITE BLOOD COUNT 13.4 10^3/uL (4.5-11.0)
--- NOTE | 2019-02-09 12:08 | PN ---
DATE: 02/09/2019 SUBJECTIVE: The patient is seen lying in bed on telemetry. He is comfortable at the present time. He does have persistent exertional dyspnea. PHYSICAL EXAMINATION: GENERAL: He is a overweight middle-aged man. VITAL SIGNS: Blood pressure is 110/70 with pulse 72 and sinus, respirations 14. He is afebrile. HEENT: No JVD. CHEST: Few scattered rhonchi heard. HEART: PMI displaced laterally with systolic murmur at the left sternal border. ABDOMEN: Soft and nontender with bowel sounds. EXTREMITIES: No edema. LABORATORY DATA: Potassium 3.9, BUN and creatinine 25 and 1.5, white count 13.4, hemoglobin and hematocrit 14.5 and 45.1 with platelet count of 206,000. His echocardiogram was reviewed and revealed evidence of borderline left atrial enlargement and mildly dilated left ventricle with moderate global LV hypokinesis, moderate mitral regurgitation with mild tricuspid regurgitation. CURRENT MEDICATIONS: Include spirolactone 25 mg b.i.d., Ecotrin once daily, Lasix 40 mg IV every 12 hours, Lipitor, metoprolol 50 mg every 12 hours, Pepcid and Zestril 20 mg daily. IMPRESSION: 1. Exertional dyspnea felt in part secondary to left ventricular dysfunction and mitral regurgitation, however, his symptoms seem out of proportion to his physical findings. Evaluation for pulmonary causes should be considered as well. 2. History of heart failure with reduced ejection fraction. 3. Moderate mitral regurgitation. 4. History of hypertension and obesity. RECOMMENDATIONS: His current medications will be continued for now. Sodium and fluid restriction were advised. Increase activity is recommended as well, pulmonary evaluation may be warranted. I will continue to follow and make further recommendations as appropriate. Leo Martin MD MTDD
--- NOTE | 2019-02-09 12:16 | CP.PCM.PN ---
<Jose Juan Méndez - Last Filed: 02/09/19 12:12> Subjective - Date & Time of Evaluation Date of Evaluation: 02/09/19 Time of Evaluation: 07:45 - Subjective Subjective: Jose Juan Méndez DO PGY1 Hospitalist Progress Note for Dr Mendenhall Patient seen and examined at bedside. SOB improving, denied CP, palpitations. Nurse reported SOB and desating last night, placed on 2L NC O2 continuous. He is ambulating, tolerating regular diet. Objective - Vital Signs/Intake and Output Vital Signs (last 24 hours): Temp Pulse Resp BP Pulse Ox 98.4 F 89 20 123/72 97 02/09/19 06:00 02/09/19 09:58 02/09/19 06:00 02/09/19 09:58 02/09/19 06:00 Intake and Output: 02/09/19 02/09/19 06:59 18:59 Intake Total 0 Output Total 0 Balance 0 - Medications Medications: Current Medications Aspirin (Ecotrin) 81 mg PO DAILY [facility] Last Admin: 02/09/19 09:57 Dose: 81 mg Atorvastatin Calcium (Lipitor) 80 mg PO DAILY [facility] Last Admin: 02/09/19 09:57 Dose: 80 mg Famotidine (Pepcid) 20 mg PO 1000,2200 [facility] Last Admin: 02/09/19 09:58 Dose: 20 mg Furosemide (Lasix) 40 mg IVP Q12 [facility] Last Admin: 02/09/19 09:58 Dose: 40 mg Lisinopril (Zestril) 20 mg PO DAILY [facility] Last Admin: 02/09/19 09:57 Dose: 20 mg Metoprolol Tartrate (Lopressor) 50 mg PO Q12 [facility] Last Admin: 02/09/19 09:58 Dose: 50 mg Non-Formulary Medication (Mirabegron [Myrbetriq]) 50 mg PO DAILY [facility] Last Admin: 02/09/19 09:58 Dose: Not Given Spironolactone (Aldactone) 25 mg PO BID [facility] Last Admin: 02/09/19 09:57 Dose: 25 mg - Labs Labs: 02/09/19 06:45 02/09/19 06:45 PT 13.4 SECONDS (9.4-12.5) H 02/08/19 02:32 INR 1.21 02/08/19 02:32 APTT 33.0 Seconds (26.9-38.3) 02/08/19 02:32 - Constitutional Appears: Well, Non-toxic, No Acute Distress - Head Exam Head Exam: ATRAUMATIC, NORMAL INSPECTION, NORMOCEPHALIC - Eye Exam Eye Exam: EOMI, Normal appearance, PERRL Pupil Exam: NORMAL ACCOMODATION, PERRL - ENT Exam ENT Exam: Mucous Membranes Moist, Normal Exam - Neck Exam Neck Exam: Full ROM, Normal Inspection. absent: Lymphadenopathy - Respiratory Exam Respiratory Exam: Decreased Breath Sounds (b/l), Wheezes. absent: Rhonchi, Stridor - Cardiovascular Exam Cardiovascular Exam: REGULAR RHYTHM, +S1, +S2. absent: Gallop, Rubs, Murmur - GI/Abdominal Exam GI & Abdominal Exam: Soft, Normal Bowel Sounds. absent: Tenderness, Mass, Organomegaly Additional comments: obese - Extremities Exam Extremities Exam: Full ROM, Normal Capillary Refill, Normal Inspection. absent: Joint Swelling, Pedal Edema, Tenderness - Back Exam Back Exam: NORMAL INSPECTION - Neurological Exam Neurological Exam: Alert, Awake, CN II-XII Intact, Oriented x3 - Psychiatric Exam Psychiatric exam: Normal Affect, Normal Mood - Skin Skin Exam: Dry, Intact, Normal Color, Warm Assessment and Plan - Assessment and Plan (Free Text) Assessment: 73 y/o male with PMH of HFrEF, HTN, HLD admitted for CHF exacerbation Plan: CHF exacerbation: -Echo:EF 32%, RVSP 18 mmHg, global LV hypokinesia, mild LV dilatation, biatrial enlargement -CXR reveals vascular congestion. -CTA: no PE, dissection -continue lasix 40mg IVP q12 -continue metoprolol 50 bid -continue spironolactone 25 qd -tolerated walking test today without desaturation -Strict I/O -daily weights -cardiology following, Dr Martin HTN -continue home med amlodipine, lisinopril, asa, lipitor Overactive bladder -continue home med mirabegron Ex-smoker with COPD: -zithromax -solu-medrol 20 IVP daily -duoneb timbo/prn GI/DVT: protonix/lovenox/SCD HHD PT eval/treat Case reviewed and paln discussed with attending physician, Dr. Abdirashid Méndez, DO PGY1 <Mendenhall,Suzy R - Last Filed: 02/11/19 18:05> Objective - Vital Signs/Intake and Output Vital Signs (last 24 hours): Temp Pulse Resp BP Pulse Ox 98.6 F 78 19 137/76 96 02/11/19 12:00 02/11/19 14:00 02/11/19 12:00 02/11/19 12:00 02/11/19 06:00 Intake and Output: 02/11/19 02/11/19 06:59 18:59 Intake Total 360 250 Output Total 300 Balance 60 250 - Labs Labs: 02/11/19 07:00 02/11/19 07:00 PT 13.4 SECONDS (9.4-12.5) H 02/08/19 02:32 INR 1.21 02/08/19 02:32 APTT 33.0 Seconds (26.9-38.3) 02/08/19 02:32 Attending/Attestation - Attestation I have personally seen and examined this patient.: Yes I have fully participated in the care of the patient.: Yes I have reviewed all pertinent clinical information, including history, physical exam and plan: Yes Notes (Text): Patient seen and examined by me with resident at approximately 11:15AM on 02/09/19. Case including HPI, physical exam, and assessment and plan discussed with resident. Agree with above with following additions/corrections. Patient is a 73-year-old male past medical history significant for systolic CHF, hypertension, overactive bladder, and hyperlipidemia in the presented to the emergency room with shortness of breath. Patient states that he is feeling a little better. He complains of some wheezing after ambulation. States he was feeling short of breath last night. Cough is improving. No chest pain or palpitations. No nausea, vomiting, or abdominal pain. No fevers or chills. No headaches or dizziness. No dysuria. No bowel movement today. Physical exam: General: Awake and alert lying in bed in no acute distress HEENT: Normocephalic, atraumatic. Extraocular muscles intact. Pupils equal and reactive, no scleral icterus. Oropharynx is pink. Neck is supple. Cardiovascular: Normal rhythm. Normal S1 and S2. No murmurs, rubs, or gallops appreciated Pulmonary: Normal respiratory effort. Decreased breath sounds. Positive expiratory wheezing. No rhonchi or rales appreciated Gastrointestinal: Soft, nondistended. Nontender. Positive bowel sounds all 4 quadrants. No guarding. Musculoskeletal: Moves all extremities. No calf tenderness. No edema appreciated. Central nervous system: AAO X 3. No focal deficits appreciated. Dermatologic: Skin warm and dry. Assessment and plan: Patient is a 73-year-old male past medical history significant for systolic CHF, hypertension, overactive bladder, and hyperlipidemia in the presented to the emergency room with shortness of breath. 1. Acute on chronic CHF exacerbation. Cardiology recommendations appreciated. Continue IV lasix. Continue spironolactone. Continue Metoprolol and lisinopril. Monitor ins and outs and daily weights. CTA chest 02/08/19 per radiologist showed unremarkable CT pulmonary angiography, no pulmonary embolus; cardiomegaly, pulmonary vascular congestion. 2D echo per [employer] showed borderline biatrial enlargement, mildly dilated LV, moderate global LV hypokinesis, moderate mitral regurgitation, mild tricuspid regurgitation, EF approximately 32%. 2. Shortness of breath with wheezing. History of smoking. Possible COPD. Patient will need outpatient PFTs done. Placed on nebulizer treatments, Solu-Medrol, and Zithromax. 3. Hypertension. Continue lisinopril and metoprolol. 4. Hyperlipidemia. Continue Lipitor. 5. Overactive bladder. Continue home Myrbetriq. 6. GI/DVT prophylaxis. Pepcid/Lovenox. Case was discussed in detail with the patient regarding current diagnosis, study results, and treatment plan. All questions answered.
[2019-02-09] MEDS ORDERED: Albuterol-Ipratrop 3 mg / 0.5 (3 ml) UD IH PRN (13:03)
[2019-02-09] MEDS: Albuterol-Ipratrop 3 mg / 0.5 (3 ml) UD IH SCH (13:36)
[2019-02-09] MEDS: MethylPREDNISolone 40 mg Vial IVP SCH (15:18)
[2019-02-09] MEDS: Enoxaparin 40 mg Syringe SC SCH (15:19)
[2019-02-09] MEDS: Azithromycin 250 MG in Sodium Chloride 0.9% 250 ML IVPB SCH (15:19)
[2019-02-10] MEDS: Albuterol-Ipratrop 3 mg / 0.5 (3 ml) UD IH SCH ×4 (01:45→19:59)
[2019-02-10 07:05] LABS: BASO # 0.02 K/mm3 (0.0-2.0); BASO % 0.1 % (0.0-3.0); EOS # 0.1 (0.0-0.7); EOS % 0.3 % (1.5-5.0); HEMOGLOBIN 13.6 g/dL (14.0-18.0); LYMPH # 2.8 (1.2-3.4); LYMPH % 15.4 % (22.0-35.0); MEAN CELL VOLUME 95.3 fl (80.0-105.0); MEAN CORPUSCULAR HEMOGLOBIN 30.6 pg (25.0-35.0); MEAN CORPUSCULAR HGB CONC 32.1 g/dl (31.0-37.0); MEAN PLATELET VOLUME 10.9 fl (7.0-11.0); MONO # 1.4 (0.1-0.6); MONO % 7.6 % (1.0-6.0); RBC 4.45 10^6/uL (3.5-6.1); RED CELL DISTRIBUTION WIDTH 13.4 % (11.5-14.5); WHITE BLOOD COUNT 18.4 10^3/uL (4.5-11.0)
[2019-02-10 07:51] LABS: ALB/GLOB RATIO 1.1 (1.1-1.8); ALBUMIN 4.1 g/dL (3.0-4.8); ALT/SGPT 22 U/L (7-56); AST/SGOT 44 U/L (17-59); BLOOD UREA NITROGEN 36 mg/dL (7-21); CALCIUM 9.3 mg/dL (8.4-10.5); GFR NON-AFRICAN AMERICAN 59
[2019-02-10] MEDS: Enoxaparin 40 mg Syringe SC SCH (10:00)
[2019-02-10] MEDS: MethylPREDNISolone 40 mg Vial IVP SCH (10:00)
[2019-02-10] MEDS: Azithromycin 250 MG in Sodium Chloride 0.9% 250 ML IVPB SCH (10:01)
--- NOTE | 2019-02-10 15:00 | CP.PCM.PN ---
<Jose Juan Méndez - Last Filed: 02/10/19 17:42> Subjective - Date & Time of Evaluation Date of Evaluation: 02/10/19 Time of Evaluation: 07:50 - Subjective Subjective: Jose Juan Méndez DO PGY1 Hospitalist Progress Note for Dr Mendenhall Patient seen and examined at bedside. SOB improving, having dry cough, denied CP, palpitations, fever, chills. He is ambulating, tolerating regular diet. No acute events overnight Objective - Vital Signs/Intake and Output Vital Signs (last 24 hours): Temp Pulse Resp BP Pulse Ox 98.3 F 90 19 123/71 97 02/10/19 12:00 02/10/19 12:00 02/10/19 12:00 02/10/19 12:00 02/10/19 06:00 Intake and Output: 02/10/19 02/10/19 06:59 18:59 Intake Total 1620 Output Total 900 Balance 720 - Medications Medications: Current Medications Albuterol/Ipratropium (Duoneb 3 Mg/0.5 Mg (3 Ml) Ud) 3 ml IH Q2H PRN PRN Reason: Shortness of Breath Albuterol/Ipratropium (Duoneb 3 Mg/0.5 Mg (3 Ml) Ud) 3 ml [id number] Last Admin: 02/10/19 14:11 Dose: 3 ml Aspirin (Ecotrin) 81 mg PO DAILY [facility] Last Admin: 02/10/19 10:01 Dose: 81 mg Atorvastatin Calcium (Lipitor) 80 mg PO DAILY [facility] Last Admin: 02/10/19 10:00 Dose: 80 mg Enoxaparin Sodium (Lovenox) 40 mg SC DAILY [facility]; Protocol Last Admin: 02/10/19 10:00 Dose: 40 mg Famotidine (Pepcid) 20 mg PO 1000,2200 [facility] Last Admin: 02/10/19 10:01 Dose: 20 mg Furosemide (Lasix) 40 mg IVP Q12 [facility] Last Admin: 02/10/19 10:00 Dose: 40 mg Azithromycin 250 mg/ Sodium (Chloride) 250 mls @ 167 mls/hr IVPB DAILY [facility]; Protocol Last Admin: 02/10/19 10:01 Dose: 167 mls/hr Lisinopril (Zestril) 20 mg PO DAILY [facility] Last Admin: 02/10/19 10:01 Dose: 20 mg Methylprednisolone (Solu-Medrol) 20 mg IVP DAILY [facility] Last Admin: 02/10/19 10:00 Dose: 20 mg Metoprolol Tartrate (Lopressor) 50 mg PO Q12 [facility] Last Admin: 02/10/19 10:00 Dose: 50 mg Non-Formulary Medication (Mirabegron [Myrbetriq]) 50 mg PO DAILY [facility] Last Admin: 02/10/19 10:01 Dose: Not Given Spironolactone (Aldactone) 25 mg PO BID [facility] Last Admin: 02/10/19 10:01 Dose: 25 mg - Labs Labs: 02/10/19 06:30 02/10/19 06:30 PT 13.4 SECONDS (9.4-12.5) H 02/08/19 02:32 INR 1.21 02/08/19 02:32 APTT 33.0 Seconds (26.9-38.3) 02/08/19 02:32 - Additional Findings Additional findings: - Constitutional Appears: Well, Non-toxic, No Acute Distress - Head Exam Head Exam: ATRAUMATIC, NORMAL INSPECTION, NORMOCEPHALIC - Eye Exam Eye Exam: EOMI, Normal appearance, PERRL Pupil Exam: NORMAL ACCOMODATION, PERRL - ENT Exam ENT Exam: Mucous Membranes Moist, Normal Exam - Neck Exam Neck Exam: Full ROM, Normal Inspection. absent: Lymphadenopathy - Respiratory Exam Respiratory Exam: Decreased Breath Sounds (b/l), Wheezes. absent: Rhonchi, Stridor - Cardiovascular Exam Cardiovascular Exam: REGULAR RHYTHM, +S1, +S2. absent: Gallop, Rubs, Murmur - GI/Abdominal Exam GI & Abdominal Exam: Soft, Normal Bowel Sounds. absent: Tenderness, Mass, Organomegaly Additional comments: obese - Extremities Exam Extremities Exam: Full ROM, Normal Capillary Refill, Normal Inspection. absent: Joint Swelling, Pedal Edema, Tenderness - Back Exam Back Exam: NORMAL INSPECTION - Neurological Exam Neurological Exam: Alert, Awake, CN II-XII Intact, Oriented x3 - Psychiatric Exam Psychiatric exam: Normal Affect, Normal Mood - Skin Skin Exam: Dry, Intact, Normal Color, Warm Assessment and Plan - Assessment and Plan (Free Text) Assessment: 73 y/o male with PMH of HFrEF, HTN, HLD admitted for CHF exacerbation Plan: CHF exacerbation: -patient clinically improving, -Echo:EF 32%, RVSP 18 mmHg, global LV hypokinesia, mild LV dilatation, biatrial enlargement -CXR reveals vascular congestion. -CTA: no PE, dissection -continue lasix 40mg IVP q12 -continue metoprolol 50 bid -continue spironolactone 25 qd -tolerated walking test without desaturation -Strict I/O -daily weights -patient counseled on sodium restriction, daily weight, exercise, healthy diet to reduce readmission -cardiology following, Dr Martin HTN -continue home med amlodipine, lisinopril, asa, lipitor Overactive bladder -continue home med mirabegron Ex-smoker with COPD: -zithromax -solu-medrol 20 IVP daily -duoneb timbo/prn -Pulmonology consulted Dr Minor, recommended PFT and assess for sleep apnea outpatient. Symptoms improved with diuretics, more cadiogenic than pulmonary GI/DVT: protonix/lovenox/SCD HHD PT eval: home PT Case reviewed and paln discussed with attending physician, Dr. Abdirashid Méndez, PGY1 <Suzy Mendenhall R - Last Filed: 02/11/19 18:10> Objective - Vital Signs/Intake and Output Vital Signs (last 24 hours): Temp Pulse Resp BP Pulse Ox 98.6 F 78 19 137/76 96 02/11/19 12:00 02/11/19 14:00 02/11/19 12:00 02/11/19 12:00 02/11/19 06:00 Intake and Output: 02/11/19 02/11/19 06:59 18:59 Intake Total 360 250 Output Total 300 Balance 60 250 - Labs Labs: 02/11/19 07:00 02/11/19 07:00 PT 13.4 SECONDS (9.4-12.5) H 02/08/19 02:32 INR 1.21 02/08/19 02:32 APTT 33.0 Seconds (26.9-38.3) 02/08/19 02:32 Attending/Attestation - Attestation I have personally seen and examined this patient.: Yes I have fully participated in the care of the patient.: Yes I have reviewed all pertinent clinical information, including history, physical exam and plan: Yes Notes (Text): Patient seen and examined by me with resident at approximately 9:15AM on 02/10/19. Case including HPI, physical exam, and assessment and plan discussed with resident. Agree with above with following additions/corrections. Patient is a 73-year-old male past medical history significant for systolic CHF, hypertension, overactive bladder, and hyperlipidemia in the presented to the emergency room with shortness of breath. Patient states that he feels better today. Shortness of breath and cough improved. Still with some wheezing. Patient is ambulating with little to no shortness of breath. No chest pain or palpitations. No nausea, vomiting, or abdominal pain. No fevers or chills. No headaches or dizziness. No dysuria. Patient with bowel movement today. Physical exam: General: Awake and alert lying in bed in no acute distress HEENT: Normocephalic, atraumatic. Extraocular muscles intact. Pupils equal and reactive, no scleral icterus. Oropharynx is pink. Neck is supple. Cardiovascular: Normal rhythm. Normal S1 and S2. No murmurs, rubs, or gallops appreciated Pulmonary: Normal respiratory effort. Decreased breath sounds. Positive expiratory wheezing. No rhonchi or rales appreciated Gastrointestinal: Soft, nondistended. Nontender. Positive bowel sounds all 4 quadrants. No guarding. Musculoskeletal: Moves all extremities. No calf tenderness. No edema appreciated. Central nervous system: AAO X 3. No focal deficits appreciated. Dermatologic: Skin warm and dry. Assessment and plan: Patient is a 73-year-old male past medical history significant for systolic CHF, hypertension, overactive bladder, and hyperlipidemia in the presented to the emergency room with shortness of breath. 1. Acute on chronic CHF exacerbation. Cardiology recommendations appreciated. Continue IV lasix. Continue spironolactone, metoprolol, and lisinopril. Continue to monitor ins and outs and daily weights. CTA chest 02/08/19 per radiologist showed unremarkable CT pulmonary angiography, no pulmonary embolus; cardiomegaly, pulmonary vascular congestion. 2D echo per bartender server showed borderline biatrial enlargement, mildly dilated LV, moderate global LV hypokinesis, moderate mitral regurgitation, mild tricuspid regurgitation, EF approximately 32%. 2. Shortness of breath with wheezing. History of smoking. Possible COPD. Patient will need outpatient PFTs done. Continue nebulizer treatments, Solu-Medrol, and Zithromax. Continue O2 via nasal cannula as needed. Pulmonary consulted. 3. Hypertension. Continue lisinopril and metoprolol. 4. Hyperlipidemia. Continue Lipitor. 5. Overactive bladder. Continue home Myrbetriq. 6. GI/DVT prophylaxis. Pepcid/Lovenox. Case was discussed in detail with the patient regarding current diagnosis, study results, and treatment plan. All questions answered.
--- NOTE | 2019-02-10 15:46 | CP.PCM.CON ---
History of Present Illness - History of Present Illness History of Present Illness: Pulmonary Consult Note 73 M with PMH HFrEF, HTN, HLDabmitted with SOB concern for exasc of CHF however consulted pulm in case there are other causes given his smoking history. He smoked from age [age] less than 1ppd. has not smoked since. No recent travel. 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 No occupational exposures. has 1 dog at home but no allergies to pets. He denies fevers, chills, headache, dizziness, chest pain, palpitations, nausea, vomiting, constipation, diarrhea, dysuria. PMHx: HFrEF, HTN, HLD, overactive bladder, PSHx: Left wrist SHx: Former smoker Social ETOH, Denied illicit substances FamHx: HTN, DM2, CAD, throat Cancer Meds: Norvasc, benzapril, lipitor Allergies: NKDA Past Patient History - Infectious Disease Hx of Infectious Diseases: None - Past Social History Smoking Status: Former Smoker - CARDIAC Hx Cardiac Disorders: Yes (CAD, HFrEF,) Hx Congestive Heart Failure: Yes Hx Hypercholesterolemia: Yes (HLD) Hx Hypertension: Yes - PULMONARY Hx Respiratory Disorders: Yes (SMOKED CIGARETTES.QUIT) Hx Pneumonia: Yes - NEUROLOGICAL Hx Neurological Disorder: No - HEENT Hx HEENT Problems: No - RENAL Hx Chronic Kidney Disease: No - ENDOCRINE/METABOLIC Hx Diabetes Mellitus Type 2: Yes - HEMATOLOGICAL/ONCOLOGICAL Hx Blood Disorders: No - INTEGUMENTARY Hx Dermatological Problems: Yes Other/Comment: BILATERAL WRIST SCARRING.SURGERY A CHILD. LEFT AGEE SCARRING ,BANGED IT ON THE STEP. - MUSCULOSKELETAL/RHEUMATOLOGICAL Hx Musculoskeletal Disorders: Yes Hx Falls: No - GASTROINTESTINAL Hx Gastrointestinal Disorders: Yes Hx Gastroesophageal Reflux: Yes - GENITOURINARY/GYNECOLOGICAL Hx Genitourinary Disorders: Yes (overactive bladder) - PSYCHIATRIC Hx Emotional Abuse: No Hx Physical Abuse: No Hx Substance Use: No - SURGICAL HISTORY Hx Orthopedic Surgery: Yes (BILATERAL wrist sx 16 yrs old) - ANESTHESIA Hx Anesthesia Reactions: No Hx Malignant Hyperthermia: No Meds Allergies/Adverse Reactions: Allergies Allergy/AdvReac Type Severity Reaction Status Date / Time No Known Allergies Allergy Verified 11/12/17 16:46 - Medications Medications: Current Medications Albuterol/Ipratropium (Duoneb 3 Mg/0.5 Mg (3 Ml) Ud) 3 ml IH Q2H PRN PRN Reason: Shortness of Breath Albuterol/Ipratropium (Duoneb 3 Mg/0.5 Mg (3 Ml) Ud) 3 ml IH [id number] [facility] Last Admin: 02/10/19 14:11 Dose: 3 ml Aspirin (Ecotrin) 81 mg PO DAILY [facility] Last Admin: 02/10/19 10:01 Dose: 81 mg Atorvastatin Calcium (Lipitor) 80 mg PO DAILY [facility] Last Admin: 02/10/19 10:00 Dose: 80 mg Enoxaparin Sodium (Lovenox) 40 mg SC DAILY [facility]; Protocol Last Admin: 02/10/19 10:00 Dose: 40 mg Famotidine (Pepcid) 20 mg PO 1000,2200 [facility] Last Admin: 02/10/19 10:01 Dose: 20 mg Furosemide (Lasix) 40 mg IVP Q12 [facility] Last Admin: 02/10/19 10:00 Dose: 40 mg Azithromycin 250 mg/ Sodium (Chloride) 250 mls @ 167 mls/hr IVPB DAILY [facility]; Protocol Last Admin: 02/10/19 10:01 Dose: 167 mls/hr Lisinopril (Zestril) 20 mg PO DAILY [facility] Last Admin: 02/10/19 10:01 Dose: 20 mg Methylprednisolone (Solu-Medrol) 20 mg IVP DAILY [facility] Last Admin: 02/10/19 10:00 Dose: 20 mg Metoprolol Tartrate (Lopressor) 50 mg PO Q12 [facility] Last Admin: 02/10/19 10:00 Dose: 50 mg Non-Formulary Medication (Mirabegron [Myrbetriq]) 50 mg PO DAILY [facility] Last Admin: 02/10/19 10:01 Dose: Not Given Spironolactone (Aldactone) 25 mg PO BID [facility] Last Admin: 02/10/19 10:01 Dose: 25 mg Physical Exam - Constitutional Appears: Well - Head Exam Head Exam: ATRAUMATIC, NORMAL INSPECTION, NORMOCEPHALIC - Eye Exam Eye Exam: EOMI, Normal appearance, PERRL Pupil Exam: NORMAL ACCOMODATION, PERRL - ENT Exam ENT Exam: Mucous Membranes Moist, Normal Exam - Neck Exam Neck exam: Positive for: Normal Inspection - Respiratory Exam Respiratory Exam: Clear to Auscultation Bilateral, NORMAL BREATHING PATTERN - Cardiovascular Exam Cardiovascular Exam: REGULAR RHYTHM - GI/Abdominal Exam GI & Abdominal Exam: Normal Bowel Sounds, Soft. absent: Tenderness - Rectal Exam Rectal Exam: NORMAL INSPECTION - Exam Exam: Circumcision, NORMAL INSPECTION External exam: NORMAL EXTERNAL EXAM Speculum exam: NORMAL SPECULUM EXAM Bimanual exam: NORMAL BIMANUAL EXAM - Extremities Exam Extremities exam: Positive for: normal inspection - Back Exam Back exam: NORMAL INSPECTION - Neurological Exam Neurological exam: Alert, CN II-XII Intact, Normal Gait, Oriented x3, Reflexes Normal - Psychiatric Exam Psychiatric exam: Normal Affect, Normal Mood - Skin Skin Exam: Dry, Intact, Normal Color, Warm Results - Vital Signs Recent Vital Signs: Last Vital Signs Temp 98.3 F 02/10/19 12:00 Pulse 91 H 02/10/19 14:00 Resp 19 02/10/19 12:00 BP 123/71 02/10/19 12:00 Pulse Ox 97 02/10/19 06:00 - Labs Result Diagrams: 02/10/19 06:30 02/10/19 06:30 Labs: Laboratory Results - last 24 hr 02/10/19 02/10/19 06:30 06:30 WBC 18.4 H D RBC 4.45 Hgb 13.6 L Hct 42.4 MCV 95.3 MCH 30.6 MCHC 32.1 RDW 13.4 Plt Count 218 MPV 10.9 Neut % (Auto) 76.6 H Lymph % (Auto) 15.4 L [place] % (Auto) 7.6 H Eos % (Auto) 0.3 L Baso % (Auto) 0.1 Lymph # (Auto) 2.8 [place] # (Auto) 1.4 H Eos # (Auto) 0.1 Baso # (Auto) 0.02 Absolute Neuts (auto) 14.11 H Sodium 140 Potassium 4.0 Chloride 102 Carbon Dioxide 28 Anion Gap 14 BUN 36 H Creatinine 1.2 Est GFR ( Amer) > 60 Est GFR (Non-Af Amer) 59 Random Glucose 133 H Calcium 9.3 Phosphorus 4.6 H Magnesium 2.2 Total Bilirubin 1.2 AST 44 ALT 22 Alkaline Phosphatase 58 Total Protein 7.9 Albumin 4.1 Globulin 3.8 Albumin/Globulin Ratio 1.1 Assessment & Plan - Assessment and Plan (Free Text) Assessment: 73 M with PMH HFrEF, HTN, HLD abmitted with SOB which I suspect is more cadiogenic than pulmonary. Although he has a history of smoking, no evidence of parenchymal disease on CT. Patient stopped smoking a very long time ago. He has never had PFTs however. He also feels better since being admitted and he has primarly been optimized from a cardio perspective. I suspect diuresis played a role in his improvement. His CT Scan also is suggestive for pulm edema BL. At this time cont to optimize CHF Cont PRN duonebas and should be discharged on this Patient should have outpatient PFTs performed when he is feeling well to accurately assess his lung function He should also have an outpatient in-lab PFT performed to assess for LASHA or central sleep apnea given his risk factors of Male, age, BMI and CHF Jimbo Minor MD Pulmonary
--- NOTE | 2019-02-11 01:19 | PN ---
DATE: 02/10/2019 SUBJECTIVE: The patient was seen lying in bed on telemetry. He was feeling somewhat better. He states his dyspnea has improved. He has been ambulating on the floor. CURRENT MEDICATIONS: Include Aldactone 25 mg b.i.d., azithromycin, DuoNeb inhaler, albuterol inhaler, Ecotrin, Lasix 40 mg IV every 12 hours, Lipitor 80 mg daily, metoprolol 50 mg every 12 hours, Lovenox, Myrbetriq, Pepcid, Solu-Medrol, and Zestril 20 mg daily. OBJECTIVE: GENERAL: He is a overweight middle-aged man. VITAL SIGNS: His blood pressure is 122/70 with a pulse of 90 and sinus, occasional PVCs, respirations are 14. He is afebrile. HEENT: No JVD. CHEST: Bilateral scattered rhonchi heard. HEART: PMI displaced laterally with soft tones noted. Systolic murmur is present at left sternal border. ABDOMEN: Soft, nontender with bowel sounds. EXTREMITIES: No edema. DIAGNOSTIC DATA: Potassium 4, BUN and creatinine 36 and 1.2. White count 18.4 with a hemoglobin and hematocrit of 13.6 and 42.4, and platelet count of 218,000. IMPRESSION: 1. Exertional dyspnea, likely multifactorial. 2. Left ventricular dysfunction and mitral regurgitation. 3. History of hypertension and obesity. RECOMMENDATIONS: His current medications can be continued for now. Lasix can be switched to oral administration tomorrow. Pulmonary evaluation is advised as well. The need for sodium restriction and weight loss was discussed with him. I will follow along as needed. Leo Martin MD
[2019-02-11 01:42] VITALS: O2SAT 96
[2019-02-11] MEDS: Albuterol-Ipratrop 3 mg / 0.5 (3 ml) UD IH SCH ×3 (02:09→13:59)
[2019-02-11 07:34] LABS: BASO # 0.03 K/mm3 (0.0-2.0); BASO % 0.2 % (0.0-3.0); EOS # 0.2 (0.0-0.7); EOS % 0.9 % (1.5-5.0); HEMOGLOBIN 13.5 g/dL (14.0-18.0); LYMPH # 3.5 (1.2-3.4); LYMPH % 21.5 % (22.0-35.0); MEAN CORPUSCULAR HEMOGLOBIN 31.8 pg (25.0-35.0); MEAN CORPUSCULAR HGB CONC 33.1 g/dl (31.0-37.0); MEAN PLATELET VOLUME 11.1 fl (7.0-11.0); MONO # 1.3 (0.1-0.6); MONO % 7.8 % (1.0-6.0); RBC 4.25 10^6/uL (3.5-6.1); RED CELL DISTRIBUTION WIDTH 13.5 % (11.5-14.5); WHITE BLOOD COUNT 16.4 10^3/uL (4.5-11.0)
[2019-02-11 07:55] LABS: ALB/GLOB RATIO 1.1 (1.1-1.8); ALT/SGPT 22 U/L (7-56); AST/SGOT 47 U/L (17-59); BLOOD UREA NITROGEN 34 mg/dL (7-21); CALCIUM 9.5 mg/dL (8.4-10.5); GFR NON-AFRICAN AMERICAN > 60
[2019-02-11] MEDS: MethylPREDNISolone 40 mg Vial IVP SCH (09:25)
[2019-02-11] MEDS: Enoxaparin 40 mg Syringe SC SCH (09:25)
[2019-02-11] MEDS: Azithromycin 250 MG in Sodium Chloride 0.9% 250 ML IVPB SCH (11:01)
[2019-02-11 12:30] VITALS: BP 137/76; RESP 19; TEMP 98.6
--- NOTE | 2019-02-11 14:26 | PN ---
DATE: 02/11/2019 SUBJECTIVE: The patient is seen lying in bed on telemetry. He is comfortable at the present time. He states he has been ambulating with less dyspnea. He has had no chest pain. He is noted have occasional PVCs. He did have a six beat run of ventricular tachycardia yesterday. PHYSICAL EXAMINATION GENERAL: He is a middle-aged man who appears comfortable at rest. VITAL SIGNS: Blood pressure is 118/64 with a pulse of 90 and sinus, respirations of 14. He is afebrile. HEENT: No JVD. CHEST: Few scattered rhonchi heard. HEART: PMI displaced laterally with systolic murmur at the left sternal border. ABDOMEN: Soft, obese, nontender with bowel sounds. EXTREMITIES: No edema. DIAGNOSTIC DATA: Potassium 3.6. BUN and creatinine 34 and 1.1. White count 16.4, hemoglobin and hematocrit 13.5 and 40.8 with platelet count of 245,000. CURRENT MEDICATIONS: Include Aldactone 25 mg b.i.d., azithromycin, DuoNeb inhaler, Ecotrin once daily, Lasix 40 mg IV every 12 hours, Lipitor 40 mg daily, metoprolol 50 mg b.i.d., subcutaneous Lovenox, Myrbetriq, Pepcid, Solu-Medrol, and Zestril 20 mg daily. IMPRESSION: 1. Recent dyspnea with evidence of decompensated congestive heart failure, predominantly systolic, clinically improved, [id number]. 2. History of obesity. 3. [id number] mitral regurgitation. 4. History of hypertension. RECOMMENDATIONS: Lasix can be switched to oral administration at this time. The need for sodium and fluid restriction were discussed with him. Outpatient followup will be arranged. Leo Martin MD [facility]TDKings
[2019-02-11 14:58] VITALS: PULSE 78
--- NOTE | 2019-02-11 16:23 | CP.PCM.DIS ---
<Abad Mays - Last Filed: 02/11/19 16:20> Provider - Provider Date of Admission: 02/09/19 13:22 Attending physician: Suzy Mendenhall DO Primary care physician: Wen Huerta MD Consults: 02/08/19 06:48 Cardiology Consult Routine Comment: Consulting Provider: Leo Martin Consulting Physician: Leo Martin Reason for Consult: CHF exacerbation 02/10/19 09:18 Pulmonology Consult Routine Comment: Consulting Provider: Jimbo Minor Consulting Physician: Jimbo Minor Reason for Consult: sob, smoking history Time Spent in preparation of Discharge (in minutes): 45 Diagnosis - Discharge Diagnosis (1) CHF (congestive heart failure) Status: Chronic (2) Dyspnea Status: Resolved (3) CHF (congestive heart failure) Status: Chronic Hospital Course - Lab Results Lab Results: Most Recent Lab Values WBC 16.4 10^3/uL (4.5-11.0) H 02/11/19 07:00 RBC 4.25 10^6/uL (3.5-6.1) 02/11/19 07:00 Hgb 13.5 g/dL (14.0-18.0) L 02/11/19 07:00 Hct 40.8 % (42.0-52.0) L 02/11/19 07:00 MCV 96.0 fl (80.0-105.0) 02/11/19 07:00 MCH 31.8 pg (25.0-35.0) 02/11/19 07:00 MCHC 33.1 g/dl (31.0-37.0) 02/11/19 07:00 RDW 13.5 % (11.5-14.5) 02/11/19 07:00 Plt Count 245 10^3/uL (120.0-450.0) 02/11/19 07:00 MPV 11.1 fl (7.0-11.0) H 02/11/19 07:00 Neut % (Auto) 69.6 % (50.0-68.0) H 02/11/19 07:00 Lymph % (Auto) 21.5 % (22.0-35.0) L 02/11/19 07:00 [place] % (Auto) 7.8 % (1.0-6.0) H 02/11/19 07:00 Eos % (Auto) 0.9 % (1.5-5.0) L 02/11/19 07:00 Baso % (Auto) 0.2 % (0.0-3.0) 02/11/19 07:00 Lymph # (Auto) 3.5 (1.2-3.4) H 02/11/19 07:00 [place] # (Auto) 1.3 (0.1-0.6) H 02/11/19 07:00 Eos # (Auto) 0.2 (0.0-0.7) 02/11/19 07:00 Baso # (Auto) 0.03 K/mm3 (0.0-2.0) 02/11/19 07:00 Absolute Neuts (auto) 11.39 (1.4-6.5) H 02/11/19 07:00 PT 13.4 SECONDS (9.4-12.5) H 02/08/19 02:32 INR 1.21 02/08/19 02:32 APTT 33.0 Seconds (26.9-38.3) 02/08/19 02:32 D-Dimer, Quantitative 462 ng/mlDDU (0-243) H 02/08/19 02:32 Sodium 140 mmol/L (132-148) 02/11/19 07:00 Potassium 3.6 mmol/L (3.6-5.0) 02/11/19 07:00 Chloride 100 mmol/L (98-107) 02/11/19 07:00 Carbon Dioxide 31 mmol/L (21-33) 02/11/19 07:00 Anion Gap 13 (10-20) 02/11/19 07:00 BUN 34 mg/dL (7-21) H 02/11/19 07:00 Creatinine 1.1 mg/dl (0.8-1.5) 02/11/19 07:00 Est GFR ( Amer) > 60 02/11/19 07:00 Est GFR (Non-Af Amer) > 60 02/11/19 07:00 POC Glucose (mg/dL) 170 mg/dL (65-110) H 02/11/19 16:05 Random Glucose 115 mg/dL (70-110) H 02/11/19 07:00 Calcium 9.5 mg/dL (8.4-10.5) 02/11/19 07:00 Phosphorus 3.9 mg/dL (2.5-4.5) 02/11/19 07:00 Magnesium 2.0 mg/dL (1.7-2.2) 02/11/19 07:00 Total Bilirubin 1.0 mg/dL (0.2-1.3) 02/11/19 07:00 AST 47 U/L (17-59) 02/11/19 07:00 ALT 22 U/L (7-56) 02/11/19 07:00 Alkaline Phosphatase 64 U/L (38-126) 02/11/19 07:00 Lactate Dehydrogenase 578 U/L (333-699) 02/08/19 02:32 Total Creatine Kinase 339 U/L (35-230) H 02/08/19 02:32 CK-MB (CK-2) 2.0 ng/mL (0.0-3.6) 02/08/19 02:32 CK-MB (CK-2) % Cancelled 02/08/19 02:32 Troponin I 0.08 ng/mL 02/08/19 14:13 NT-Pro-B Natriuret Pep 429 pg/mL (0-450) 02/08/19 02:32 Total Protein 7.8 g/dL (5.8-8.3) 02/11/19 07:00 Albumin 4.0 g/dL (3.0-4.8) 02/11/19 07:00 Globulin 3.8 gm/dL 02/11/19 07:00 Albumin/Globulin Ratio 1.1 (1.1-1.8) 02/11/19 07:00 - Hospital Course Hospital Course: bAad Mays DO, PGY-1 Hospitalist Discharge Summary for Dr. Rakesh Mendenhall Prior to admission: Patient is a 73 year old male with PMH of systolic CHF (EF 32%), HTN, OAB, and HLD presented to ED with a complaint of dyspnea that had been worsening since the day prior to admission. He reported no longer being able to walk even a few blocks without becoming significantly short of breath. H e also admitted to orthopnea, sleeping on additional pillows at night. He denied any peripheral swelling and was not noted to have significant JVD or edema on examination. He was admitted for management of presumed CHF exacerbation. Hospitalization course: Patient initially had CTA chest (given SOB and tachycardia on EKG) which was negative for PE or other concerning findings. He had TTE completed which showed LVEF of 35%. Patient underwent appropriate diuresis with net weight loss of 15 lbs. He was placed on appropriate medications (ASA 81, lipitor increased to 80, lisinopril, lopressor, aldactone, lasix) with instructions for outpatient cardiology f/u. He was also evaluated by pulmonology who recommended outpatient PFTs, sleep study, and to continue PRN inhaler at home. On examination this AM, patient is no longer feeling short of breath and was resting comfortably, SaO2 > 95% on room air. Case was discussed with all consultants who agree patient is stable for discharge. Patient was given supply of new medicines and instructed to follow up as below. Discharge plan was discussed with patient. All questions were answered. Patient seen, examined, and discharge plan discussed with my attending Dr. Rakesh Mays D.O. IM Resident PGY-1 Discharge Exam - Head Exam Head Exam: ATRAUMATIC, NORMAL INSPECTION, NORMOCEPHALIC - Eye Exam Eye Exam: EOMI, PERRL - ENT Exam ENT Exam: Mucous Membranes Moist - Neck Exam Neck exam: Full Rom, Normal Inspection - Respiratory Exam Respiratory Exam: Clear to PA & Lateral, NORMAL BREATHING PATTERN, UNREMARKABLE. absent: Accessory Muscle Use, Rales, Rhonchi, Wheezes, Respiratory Distress - Cardiovascular Exam Cardiovascular Exam: REGULAR RHYTHM, RRR, +S1, +S2. absent: Diastolic murmur, Gallop, Rubs, Systolic Murmur - GI/Abdominal Exam GI & Abdominal Exam: Normal Bowel Sounds, Soft, Unremarkable. absent: Tenderness - Extremities Exam Extremities exam: full ROM, normal inspection - Back Exam Back exam: NORMAL INSPECTION - Neurological Exam Neurological exam: Alert, Oriented x3 - Psychiatric Exam Psychiatric exam: Normal Affect, Normal Mood - Skin Skin Exam: Dry, Intact, Warm Discharge Plan - Discharge Medications Prescriptions: Albuterol HFA [Ventolin HFA 90 mcg/actuation (8 g)] 1 puff IH Q4H PRN #1 inhaler PRN Reason: Shortness Of Breath Aspirin [Adult Low Dose Aspirin EC] 81 mg PO DAILY #30 tablet. Atorvastatin [Lipitor] 80 mg PO DAILY #30 tab Azithromycin [Z-Ted] 250 mg PO DAILY #5 tab Furosemide [Lasix] 40 mg PO DAILY #14 tablet Lisinopril [Zestril] 20 mg PO DAILY #30 tab Metoprolol Tartrate [Lopressor] 50 mg PO Q12 #60 tab Spironolactone [Aldactone] 25 mg PO DAILY #14 tab - Follow Up Plan Condition: STABLE Disposition: HOME/ ROUTINE Instructions: Chronic Obstructive Pulmonary Disease (COPD), Including Emphysema, Heart Failure, Adult (DC), Heart Failure (DC), Heart Failure (GEN), Pacemaker (DC), Pacemaker (GEN), Pulmonary Edema (DC), Pulmonary Edema (GEN), Ascites (DC), Ascites (GEN) Additional Instructions: Jose follow up with your primary medical doctor, Dr. Huerta, within 3-5 days of discharge. Please follow up with the warp tying machine tender, Dr. Martin, within 1 week of discharge. You will need to see a lung doctor as well for outpatient sleep study and lung function testing. Please ask Dr. Huerta for a referral. Please stop taking home benazapril, norvasc (amlodopine), and lipitor. We have given you new medicines: Your dose of lipitor has been increased to 80 mg. Please take the new prescription of 80 mg once a day. Lisinopril 20mg once a day Lasix 40 mg once a day. Lopressor 50 mg twice a day. Aldactone 25 mg once a day. We have given you an antibiotic prescription, please take Zithromax 250 mg once a day for 5 days. We have also given you an albuterol inhaler which you may use every 4-6 hours as needed if you become short of breath. Please speak with Dr. Huerta about these medication adjustments. Please get any medication refills from your primary care doctor. You will need repeat blood work to monitor your electrolytes as you are on diuretics (lasix and aldactone). If any of your symptoms return or you experience new concerning symptoms, please return to the nearest emergency room. Referrals: Leo Martin MD [Staff Provider] - Wen Prince MD [Primary Care Provider] - <Suzy Mendenhall R - Last Filed: 02/14/19 12:15> Provider - Provider Date of Admission: 02/09/19 13:22 Attending physician: Suzy Mendenhall DO Primary care physician: Wen Huerta MD Consults: 02/08/19 06:48 Cardiology Consult Routine Comment: Consulting Provider: Leo Martin Consulting Physician: Leo Martin Reason for Consult: CHF exacerbation 02/10/19 09:18 Pulmonology Consult Routine Comment: Consulting Provider: Jimbo Minor Consulting Physician: Jimbo Minor Reason for Consult: sob, smoking history Hospital Course - Lab Results Lab Results: Most Recent Lab Values WBC 16.4 10^3/uL (4.5-11.0) H 02/11/19 07:00 RBC 4.25 10^6/uL (3.5-6.1) 02/11/19 07:00 Hgb 13.5 g/dL (14.0-18.0) L 02/11/19 07:00 Hct 40.8 % (42.0-52.0) L 02/11/19 07:00 MCV 96.0 fl (80.0-105.0) 02/11/19 07:00 MCH 31.8 pg (25.0-35.0) 02/11/19 07:00 MCHC 33.1 g/dl (31.0-37.0) 02/11/19 07:00 RDW 13.5 % (11.5-14.5) 02/11/19 07:00 Plt Count 245 10^3/uL (120.0-450.0) 02/11/19 07:00 MPV 11.1 fl (7.0-11.0) H 02/11/19 07:00 Neut % (Auto) 69.6 % (50.0-68.0) H 02/11/19 07:00 Lymph % (Auto) 21.5 % (22.0-35.0) L 02/11/19 07:00 [place] % (Auto) 7.8 % (1.0-6.0) H 02/11/19 07:00 Eos % (Auto) 0.9 % (1.5-5.0) L 02/11/19 07:00 Baso % (Auto) 0.2 % (0.0-3.0) 02/11/19 07:00 Lymph # (Auto) 3.5 (1.2-3.4) H 02/11/19 07:00 [place] # (Auto) 1.3 (0.1-0.6) H 02/11/19 07:00 Eos # (Auto) 0.2 (0.0-0.7) 02/11/19 07:00 Baso # (Auto) 0.03 K/mm3 (0.0-2.0) 02/11/19 07:00 Absolute Neuts (auto) 11.39 (1.4-6.5) H 02/11/19 07:00 PT 13.4 SECONDS (9.4-12.5) H 02/08/19 02:32 INR 1.21 02/08/19 02:32 APTT 33.0 Seconds (26.9-38.3) 02/08/19 02:32 D-Dimer, Quantitative 462 ng/mlDDU (0-243) H 02/08/19 02:32 Sodium 140 mmol/L (132-148) 02/11/19 07:00 Potassium 3.6 mmol/L (3.6-5.0) 02/11/19 07:00 Chloride 100 mmol/L (98-107) 02/11/19 07:00 Carbon Dioxide 31 mmol/L (21-33) 02/11/19 07:00 Anion Gap 13 (10-20) 02/11/19 07:00 BUN 34 mg/dL (7-21) H 02/11/19 07:00 Creatinine 1.1 mg/dl (0.8-1.5) 02/11/19 07:00 Est GFR ( Amer) > 60 02/11/19 07:00 Est GFR (Non-Af Amer) > 60 02/11/19 07:00 POC Glucose (mg/dL) 170 mg/dL (65-110) H 02/11/19 16:05 Random Glucose 115 mg/dL (70-110) H 02/11/19 07:00 Calcium 9.5 mg/dL (8.4-10.5) 02/11/19 07:00 Phosphorus 3.9 mg/dL (2.5-4.5) 02/11/19 07:00 Magnesium 2.0 mg/dL (1.7-2.2) 02/11/19 07:00 Total Bilirubin 1.0 mg/dL (0.2-1.3) 02/11/19 07:00 AST 47 U/L (17-59) 02/11/19 07:00 ALT 22 U/L (7-56) 02/11/19 07:00 Alkaline Phosphatase 64 U/L (38-126) 02/11/19 07:00 Lactate Dehydrogenase 578 U/L (333-699) 02/08/19 02:32 Total Creatine Kinase 339 U/L (35-230) H 02/08/19 02:32 CK-MB (CK-2) 2.0 ng/mL (0.0-3.6) 02/08/19 02:32 CK-MB (CK-2) % Cancelled 02/08/19 02:32 Troponin I 0.08 ng/mL 02/08/19 14:13 NT-Pro-B Natriuret Pep 429 pg/mL (0-450) 02/08/19 02:32 Total Protein 7.8 g/dL (5.8-8.3) 02/11/19 07:00 Albumin 4.0 g/dL (3.0-4.8) 02/11/19 07:00 Globulin 3.8 gm/dL 02/11/19 07:00 Albumin/Globulin Ratio 1.1 (1.1-1.8) 02/11/19 07:00 Attending/Attestation - Attestation I have personally seen and examined this patient.: Yes I have fully participated in the care of the patient.: Yes I have reviewed all pertinent clinical information, including history, physical exam and plan: Yes Notes (Text): Please note this DC summary is for 02/11/19 Patient seen and examined by me with residentat approximately 9:30 AM and prior to discharge on 02/11/19. Case including discharge plan discussed with resident. Agree with above with following additions/corrections. Patient is a 73-year-old male past medical history significant for systolic CHF, hypertension, overactive bladder, and hyperlipidemia in the presented to the emergency room with shortness of breath. Please see H&P for full details. Patient was found to have acute on chronic CHF exacerbation, shortness of breath with wheezing, hypertension, hyperlipidemia, and overactive bladder. Cardiology was following. Patient was treated with IV Lasix. Patient was also treated with spironolactone, metoprolol, and lisinopril. Ins and outs and daily weights were monitored. CTA chest 02/08/19 per radiologist showed unremarkable CT pulmonary angiography, no pulmonary embolus; cardiomegaly, pulmonary vascular congestion. 2D echo per warp tying machine tender showed borderline biatrial enlargement, mildly dilated LV, moderate global LV hypokinesis, moderate mitral regurgitation, mild tricuspid regurgitation, EF approximately 32%. Patient was also seen by pulmonary. Patient was counseled at length on need for outpatient PFTs. Patient was also treated with nebulizer treatments, solu-medrol, and Zithromax. Patient was also treated with O2 via nasal cannula as needed. Patient was treated with lisinopril and metoprolol. Patient was treated with Lipitor for hyperlipidemia. Patient was continued on Myrbetriq for overactive bladder. Patient had leukocytosis secondary to steroids. Cough and shortness of breath improved. Patient was ambulating without shortness of breath. Patient was feeling much better. Patient was cleared for discharge by all consultants. Discharge medications were discussed with consultants. Patient was discharged home. On day of discharge, patient stated he was feeling much better. Shortness of breath and cough was improved. Patient was ambulating well without shortness of breath. Patient denied chest pain or palpitations. Patient denied any headaches or dizziness. No abdominal pain. No nausea or vomiting. No fevers or chills. No dysuria. No change in vision. Physical exam: General: Awake and alert lying in bed in no acute distress HEENT: Normocephalic, atraumatic. Extraocular muscles intact. Pupils equal and reactive, no scleral icterus. Oropharynx is pink. Neck is supple. Cardiovascular: Normal rhythm. Normal S1 and S2. No murmurs, rubs, or gallops appreciated Pulmonary: Normal respiratory effort. Improved breath sounds. No rhonchi, rales, or wheezing appreciated Gastrointestinal: Soft, nondistended. Nontender. Positive bowel sounds all 4 quadrants. No guarding. Musculoskeletal: Moves all extremities. No calf tenderness. No edema appreciated. Central nervous system: AAO X 3. No focal deficits appreciated. Dermatologic: Skin warm and dry. Please see chart for full details. Follow up instructions: Patient to follow up with PMD within 3-5 days. Patient to follow up with warp tying machine tender within 1 week. Patient to follow up with pulmonary within one week of discharge. Patient to take medications as prescribed. Patient to have repeat blood work with primary care doctor. All instructions explained to the patient in detail. Patient both understands and agrees to all instructions. Written instructions also given. Time spent in discharging the patient including chart review, medication reconciliation, discussion with the patient, biomedical engineering director, consultants, and nursing staff was approximately 45 minutes.
== END 2019-02-11 17:27 | disposition home or self-care (01) | DRG 293 ==
LOC: ED 01:49 → ERH 04:01 → 2RNO 06:38 → 2RSO 02-09 03:18 → OBSVTOIN 02-09 13:22
PROVIDERS: ADMIT Hospitalist; ATTEND Hospitalist
PROC: 3E0F7GC Introduction of Other Therapeutic Substance into Respiratory Tract, Via Natural or Artificial Opening (ICD-10-PCS; principal; 2019-02-09)
DX: I11.0 Hypertensive heart disease with heart failure (principal); I50.23 Acute on chronic systolic (congestive) heart failure; I42.0 Dilated cardiomyopathy; I25.10 Atherosclerotic heart disease of native coronary artery without angina pectoris; I34.0 Nonrheumatic mitral (valve) insufficiency; N32.81 Overactive bladder; J44.9 Chronic obstructive pulmonary disease, unspecified; K21.9 Gastro-esophageal reflux disease without esophagitis; E66.9 Obesity, unspecified; Z68.34 Body mass index [BMI] 34.0-34.9, adult; E78.5 Hyperlipidemia, unspecified; D72.829 Elevated white blood cell count, unspecified; T38.0X5A Adverse effect of glucocorticoids and synthetic analogues, initial encounter; R00.0 Tachycardia, unspecified; Z87.891 Personal history of nicotine dependence